=== PATIENT | male | born 1960 | race Caucasian/White ===

== ENCOUNTER → 2017-10-19 08:39 | Outpatient (CLI) | payer OTHER, SELFPAY ==
--- NOTE | 2017-10-19 08:43 | CDU_ITS ---
Reason For Study: STENOSIS Rt. Velocities/BP Lt. Velocities/BP Prox CCA 55.7/14.1 cm/sec. Prox CCA 79.7/28.1 cm/sec. Mid CCA 49.2/11.7 cm/sec. Mid CCA 62.1/21.7 cm/sec. Dist CCA 53.4/16.4 cm/sec. Dist CCA 66.3/20.5 cm/sec. Prox ICA 62.1/24 cm/sec. Prox ICA 83.6/24.8 cm/sec. Mid ICA 78/32.8 cm/sec. Mid ICA 74.5/28.7 cm/sec. Dist ICA 106/39.3 cm/sec. Dist ICA 123/35.4 cm/sec. Rt. ICA/CCA = 1.99. Lt. ICA/CCA = 1.86. Prox ECA 138/22.6 cm/sec. Prox ECA 125/24.6 cm/sec. Rt. Vert. 57.8/17.3 cm/sec. Lt. Vert. 50.7/13.8 cm/sec. Right Extracranial There is heterogeneous, irregular atherosclerotic plaque noted in the right common carotid artery. There is heterogeneous, irregular atherosclerotic plaque noted in the right internal carotid artery. There is heterogeneous, irregular atherosclerotic plaque noted in the right external carotid artery. Antegrade flow is noted in the right vertebral artery. Left Extracranial There is heterogeneous, irregular atherosclerotic plaque noted in the left common carotid artery. There is heterogeneous, irregular atherosclerotic plaque noted in the left internal carotid artery. There is heterogeneous, irregular atherosclerotic plaque noted in the left external carotid artery. Antegrade flow is noted in the left vertebral artery. Procedure Carotid Duplex [id number]. Exam performed in department. Interpretation Summary Mild (<50%) stenosis right extracranial internal carotid. Mild (<50%) stenosis left extracranial internal carotid. Flow within the vertebral arteries is antegrade bilaterally. Ordering Physician: Antolin Padilla Referring Physician: Antolin Padilla Performed By: Mary Killian RVT and Student
--- NOTE | 2017-10-19 08:44 | AAVD_ITS ---
Reason For Study: STENOSIS Aorta Measurements Aorta Doppler Measurements Proximal aorta measures1.83 x 1.79cm. in cross- Peak systolic flow velocities within the proximal sectional axis. aorta measure 67.5/18.2 cm/sec. Proximal aorta measures1.78cm. in longitudinal Peak systolic flow velocities within the mid axis. aorta measure 54.7 cm/sec. Mid aorta measures1.49 x 1.41cm. in cross- Peak systolic flow velocities within the distal sectional axis. aorta measure 63.8 cm/sec. Mid aorta measures1.42cm. in longitudinal axis. Distal aorta measures1.53 x 1.45cm. in cross- sectional axis. Distal aorta measures1.53cm. in longitudinal axis. Left Iliac Artery Left iliac artery measures 0.63 cm. in the longitudinal axis. Left iliac artery measures 0.67 x 0.67 cm. in the cross-sectional axis. Peak systolic velocity in the left iliac artery measures 255 cm/sec. Right Iliac Artery Right iliac artery measures 0.56 cm. in the longitudinal axis. Right iliac artery measures 0.62 x 0.72 cm. in the cross-sectional axis. Peak systolic velocity in the right iliac artery measures 257 cm/sec. Procedure Aorta IVC Iliac vasculature or bypass grafts [id number]. Exam performed in department. Interpretation Summary 1. No aortic aneurysm. 2. Bilateral AVRIL stenosis. Ordering Physician: Antolin Padilla Referring Physician: Antolin Padilla Performed By: Mary Killian RVT and Student
--- NOTE | 2017-10-25 11:39 | LEAS ---
Arterial Study - Arterial Study Arterial Study: Date of scan 10/19/[address] Padilla History: Patient with follow-up from his claudication symptoms. Interpretation: Right lower extremity with and duplex triphasic flow noted at the ankle with an NANCIE 0.99 at the PT and 1.0 to the DP. Next Left lower extremity with more of a monophasic waveform noted at the ankle of the DP with an NANCIE 0.63 in the PT with an NANCIE 0.53. Impression: 1. Right lower extremity with no evidence of significant arterial occlusive disease at rest with an NANCIE 1.02. 2. Left lower extremity with moderate arterial occlusive disease and NANCIE 0.63.
== END ==
PROVIDERS: Family Provider Family Medicine; PCP Family Medicine; Visit Provider Surgery Vascular Surgery
DX: I65.23 Occlusion and stenosis of bilateral carotid arteries (principal); M79.604 Pain in right leg; I74.09 Other arterial embolism and thrombosis of abdominal aorta; I70.213 Atherosclerosis of native arteries of extremities with intermittent claudication, bilateral legs; I10 Essential (primary) hypertension; F17.200 Nicotine dependence, unspecified, uncomplicated
CPT/HCPCS: 93880; 93922; 93978

== ENCOUNTER → 2018-10-23 12:30 | Outpatient (CLI) | payer OTHER, SELFPAY ==
[2018-10-23 12:04] VITALS: BMI 28.0
--- NOTE | 2018-10-23 12:32 | CT_ITS ---
STUDY: LOW DOSE CT LUNG CANCER SCREENING REASON FOR EXAM: Male, 58 years old. Smoking history of 1.5 pack per day for 45 years. RADIATION DOSAGE (If Supplied By Facility): CTDIvol = ( 4.02 ) mGy, DLP = ( 164.56 ) mGycm TECHNIQUE: No contrast was administered. Low dose technique was utilized (average mAS-38 and kVp 120). 1.25 mm axial source images with a slice interval of 1.25-mm were reconstructed in lung windows. 2.5 mm axial source images with a slice interval of 2.5-mm were reconstructed in lung windows. 5.0 mm axial source images with a slice interval of 5.0-mm were reconstructed in soft tissue windows. Nodule measured using lung windows on PACS and/or independent workstation with automated measurement of minimum and maximum diameter. Nodule measurement reported as average diameter rounded to the nearest whole number. Growth is defined as an increase ins size of greater than 1.5 mm. COMPARISON: None. NODULES: There is a 3.9 cm x 2.3 cm x 2.6 cm infiltrative density in the posterior aspect of the lingular segment of the left upper lobe abutting the left major fissure. This most likely presents an area of scarring. Correlation with a PET scan is recommended for further evaluation. Emphysema: Mild degree of emphysematous changes more prominent in the upper lobes. Hyperinflation. Endobronchial lesion: Aorta: Atherosclerotic calcification. Coronary arteries: Coronary artery calcification. Mediastinal nodes: Small benign-appearing mediastinal lymph nodes. Other chest and abdominal findings: Multilevel degenerative changes of the thoracic spine. CT/Low Dose CT Lung Screening IMPRESSION: Lung-RADS category 4A - Screening at 3 months with LDCT or evaluation with PET/CT may be used. IMPORTANT NOTES FOR USE: ACR Lung-RADS Version 1.0 Assessment Categories Release Date: June 03, 2013 Category: Coded 0-4 bases on nodule(s) with highest degree of suspicion. Negative screen is defined as categories 1 and 2; a positive screen is defined as categories 3 and 4. Category 3 and 4A nodules that are unchanged on interval CT should be coded as category 2, and individuals returned to screening in 12 months. Category 4X: Category 3 or 4 nodules with additional imaging findings that increase the suspicion of lung cancer, such as spiculation, GGN that doubles in size in 1 year, enlarged lymph notes, etc. Category Modifiers: S (significant finding unrelated to lung cancer) and C (prior history of treated lung cancer) may be added to the 0-4 Lung-RADS Electronically Signed: Bhaskar Bernal, at 13:01 EDT , Service support ,
== END ==
PROVIDERS: Family Provider Family Medicine; PCP Family Medicine; Referring Provider Nurse Practitioner Family; Visit Provider Nurse Practitioner Family
DX: F17.210 Nicotine dependence, cigarettes, uncomplicated (principal); Z12.2 Encounter for screening for malignant neoplasm of respiratory organs
CPT/HCPCS: G0297

== ENCOUNTER → 2018-10-26 10:40 | Outpatient (CLI) | payer OTHER, SELFPAY ==
[2018-10-25 08:18] VITALS: BMI 27.8
--- NOTE | 2018-10-26 15:39 | PFTCOMP ---
COMPLETE PULMONARY FUNCTION TEST INTERPRETATION Brief HPI: Patient is a 58 year old male, currently under the care of Dr. Arambula, who presents to [facility] for complete pulmonary function tests secondary to diagnosis of nicotine dependence. Respiratory therapist reports good effort and reproducible results. Interpretation: Forced expiration spirometry shows a moderate large airways obstructive ventilatory defect with an FEV1 of 74% predicted. There is a significant bronchodilator response in FEV1 by strict ATS criteria. Spirograms are of good quality and plateau slowly, indicating slowly emptying areas of the lungs. The respiratory flow volume loop shows decreased expiratory flow rates at high lung volumes consistent with small airways obstruction. Lung volumes by body plethysmography show a normal total lung capacity at 7.7 L, 112% predicted. All other lung volumes are within normal limits. Diffusion capacity by carbon monoxide is normal at 102% predicted. The airway resistance is elevated. No previous pulmonary function tests were available for review. Impression: Partially reversible moderate large airways obstructive ventilatory defect and a pattern consistent with chronic bronchitis/asthma
== END ==
PROVIDERS: Family Provider Family Medicine; PCP Family Medicine; Referring Provider Internal Medicine Critical Care Medicine; Visit Provider Internal Medicine Critical Care Medicine
DX: F17.210 Nicotine dependence, cigarettes, uncomplicated (principal)
CPT/HCPCS: 94060; 94726; 94729

== ENCOUNTER → 2018-10-29 07:20 | Outpatient (CLI) | payer OTHER, SELFPAY ==
[2018-10-25 08:18] VITALS: BMI 27.8
--- NOTE | 2018-10-29 08:00 | PET_ITS ---
EXAMINATION: FDG PET CT INDICATIONS: A 58-year-old male with reported history of pulmonary nodularity. COMPARISON EXAMINATION: CT of the chest dated 10/23/18. TECHNIQUE: Following the intravenous administration of 16.38 mCi of F-18 deoxyglucose via the left antecubital fossa, multiplanar image acquisitions of the neck, chest, abdomen and pelvis to level of mid thigh, obtained at one hour post radiopharmaceutical administration contemporaneously interpreted with the current CT of the neck, chest, abdomen and pelvis to level of mid thigh, dated 10/29/[address] of the chest dated 10/23/18 reveal: SERUM GLUCOSE LEVEL: 114 mg/dl. HEIGHT: 71 inches. WEIGHT: 200 lbs. FINDINGS: 1. There is no quantitative scintigraphic evidence of abnormal increased glucose metabolism within the context of the left hemithorax pulmonary parenchyma to include a subtle ground-glass density noted in the left upper posteromedial lung field, left upper lobe. 2. Normal physiologic distribution of the radiopharmaceutical is apparent in the hepatic and splenic parenchyma, both renal units, bladder and visualized intestinal tract. There is uniform distribution of the radiopharmaceutical concentration defined in the visualized cerebellar hemispheres and cerebral cortical structures.? Diffuse intestinal tract activity is noted throughout all four quadrants of the abdominal-pelvic retroperitoneum, mesentery consistent with normal physiologic distribution of the radiopharmaceutical. Pertinent CT findings are as follows. CHEST: The parenchymal density noted in the left lower anterolateral lung field, lingula demonstrated on CT of the chest dated 10/23/18 is not apparent on the current CT component of the FDG PET CT study dated 10/29/18. Coronary arterial calcification is observed. Atherosclerotic calcification is noted in the thoracic aorta. The maximal axial diameter of the ascending thoracic aorta is 42.6 mm. Scattered bilateral axillary and mediastinal soft tissue is ametabolic. ABDOMEN AND PELVIS: Atherosclerotic calcification is defined in the abdominal aorta without evidence of dilatation, aneurysm formation. Abdominal-pelvic arterial calcification is observed. Bilateral fat-containing inguinal hernias are noted. Right-left inguinal soft tissue densities with fatty hilus formation are non-glucose avid. SKELETAL: Degenerative changes defined in the cervical, thoracic and lumbar spine demonstrate no evidence for glucose hypermetabolism. PET/PET/CT Tumor Base -Thigh Init IMPRESSION: 1. NEGATIVE EXAMINATION. There is no quantitative scintigraphic evidence of abnormal increased glucose metabolism within the context of the left mid posteromedial lung field, left upper lobe corresponding to ground-glass density defined on CT of the chest dated 10/29/18. 2. Anatomic stability may be ensured in the left mid posteromedial hemithorax pulmonary parenchyma with repeat CT of the thorax in three months. (Sathish, Seminars in Thoracic and Cardiovascular Surgery 14:292, 2002). 3. Meticulous inspection of the left lower anterolateral lung field, lingula demonstrates complete resolution of the previously described-visualized anatomic abnormality noted on diagnostic CT of the chest dated 10/23/18. Electronic Signature Jacques Kim D.O. Electronically Signed: Jacques Kim DO at 22:36 EDT Tel , Service support ,
== END ==
PROVIDERS: Family Provider Family Medicine; PCP Family Medicine; Referring Provider Internal Medicine Critical Care Medicine; Visit Provider Internal Medicine Critical Care Medicine
DX: R91.8 Other nonspecific abnormal finding of lung field (principal)
CPT/HCPCS: 78815; A9552

== ENCOUNTER → 2018-11-26 15:14 | Outpatient (CLI) | payer OTHER, SELFPAY ==
[2018-11-01 10:03] VITALS: BMI 28.3
== END ==
PROVIDERS: Family Provider Family Medicine; PCP Family Medicine; Referring Provider Internal Medicine Critical Care Medicine; Visit Provider Internal Medicine Critical Care Medicine
DX: G47.30 Sleep apnea, unspecified (principal)
CPT/HCPCS: 94762

== ENCOUNTER → 2019-04-15 08:47 | Outpatient (CLI) | payer OTHER, SELFPAY ==
[2018-12-19 15:19] VITALS: BMI 28.3
--- NOTE | 2019-04-15 08:51 | CDU_ITS ---
Reason For Study: stenosis Rt. Velocities/BP Lt. Velocities/BP Prox CCA 63.6/13.1 cm/sec. Prox CCA 92.8/27.7 cm/sec. Mid CCA 72.4/12.0 cm/sec. Mid CCA 86.7/29.0 cm/sec. Dist CCA 52.6/13.1 cm/sec. Dist CCA 79.3/20.4 cm/sec. Prox ICA 67.4/25.7 cm/sec. Prox ICA 103.4/34.0 cm/sec. Mid ICA 78.1/36.4 cm/sec. Mid ICA 94.2/34.0 cm/sec. Dist ICA 94.1/30.2 cm/sec. Dist ICA 118.0/48.6 cm/sec. Rt. ICA/CCA = 94.1/72.4=1.3. Lt. ICA/CCA = 118.0/92.8=1.3. Prox ECA 183.5/25.5 cm/sec. Prox ECA 201.0/21.1 cm/sec. Rt. Vert. 49.9/13.0 cm/sec. Lt. Vert. 57.0/18.6 cm/sec. Right Extracranial There is heterogeneous, irregular atherosclerotic plaque noted in the right common carotid artery. There is heterogeneous, irregular atherosclerotic plaque noted in the right internal carotid artery. There is heterogeneous, irregular atherosclerotic plaque noted in the right external carotid artery. Antegrade flow is noted in the right vertebral artery. There is heterogeneous, irregular atherosclerotic plaque noted in the right bulb. Left Extracranial There is heterogeneous, irregular atherosclerotic plaque noted in the left common carotid artery. There is heterogeneous, smooth atherosclerotic plaque noted in the left internal carotid artery. There is heterogeneous, irregular atherosclerotic plaque noted in the left external carotid artery. Antegrade flow is noted in the left vertebral artery. There is heterogeneous, irregular atherosclerotic plaque noted in the left bulb. Procedure Carotid Duplex [id number]. Exam performed in department. Interpretation Summary Mild (<50%) stenosis right extracranial internal carotid. Mild (<50%) stenosis left extracranial internal carotid. Flow within the vertebral arteries is antegrade bilaterally. Ordering Physician: Antolin Padilla Referring Physician: Antolin Tyson Performed By: Nohelia Black, CHRISTIN, RVT
--- NOTE | 2019-04-15 08:52 | AAVD_ITS ---
Reason For Study: aortoilliac disease, atherosclerosis Aorta Measurements Aorta Doppler Measurements Proximal aorta measures1.79 x 1.81cm. in cross- Peak systolic flow velocities within the proximal sectional axis. aorta measure 31.1 cm/sec. Proximal aorta measures1.84cm. in longitudinal Peak systolic flow velocities within the mid aorta axis. measure 50.4 cm/sec. Mid aorta measures1.68 x 1.68cm. in cross- Peak systolic flow velocities within the distal sectional axis. aorta measure 66.2 cm/sec. Mid aorta measures1.66cm. in longitudinal axis. Distal aorta measures1.81 x 1.79cm. in cross- sectional axis. Distal aorta measures1.85cm. in longitudinal axis. Interpretation Summary 1. No aortic aneurysm or stenosis. Ordering Physician: Antolin Padilla Referring Physician: Antolin Padilla Performed By: Nohelia Black, CHRISTIN, RVT
== END ==
PROVIDERS: PCP Family Medicine; Referring Provider Surgery Vascular Surgery; Visit Provider Surgery Vascular Surgery
DX: I65.23 Occlusion and stenosis of bilateral carotid arteries (principal); I74.09 Other arterial embolism and thrombosis of abdominal aorta; I70.213 Atherosclerosis of native arteries of extremities with intermittent claudication, bilateral legs; F17.200 Nicotine dependence, unspecified, uncomplicated
CPT/HCPCS: 93880; 93922; 93978

== ENCOUNTER → 2020-07-03 07:48 | Outpatient (CLI) | payer OTHER, SELFPAY ==
[2018-12-19 15:19] VITALS: BMI 28.3
--- NOTE | 2020-07-03 07:51 | ART_ITS ---
Reason For Study: Atherosclerosis Procedure A bilateral lower extremity continuous wave Doppler with analog waveform analysis and ankle brachial indexes. Left Segmental Pressures Left brachial= 199mmHg. Left posterior tibial artery = 76mmHg. Left dorsalis pedis artery = 87mmHg. Left digit = 68 mmHg. The left dorsalis pedis waveforms are monophasic. The left posterior tibial artery waveforms are monophasic. Right Segmental Pressures Right brachial= 192mmHg. Right posterior tibial artery = 181mmHg. Right dorsalis pedis artery = 192mmHg. Right digit = 117 mmHg. The right dorsalis pedis waveforms are triphasic. The right posterior tibial artery waveforms are triphasic. Indices The right ankle brachial index by the dorsalis pedis is 0.96. The right ankle brachial index by the posterior tibial artery is 0.91. The right digital-brachial index is 0.59. The left ankle brachial index by the dorsalis pedis is 0.44. The left ankle brachial index by the posterior tibial artery is 0.38. The left digital-brachial index is 0.34. VL/Ankle Brachial Index Interpretation Summary Right with no evidence of occlusive disease at rest with triphasic flow and an NANCIE 0.96 with a DBI of 0.59. Left leg with moderate to severe occlusive disease with an NANCIE 0.44 an d a DBI 0.34. Ordering Physician: Antolin Padilla Referring Physician: Antolin Tyson Performed By: Ilda Nava RVT
--- NOTE | 2020-07-03 07:51 | AAVD_ITS ---
Reason For Study: Aortoiliac occlusive disease Aorta Measurements Aorta Doppler Measurements Proximal aorta measures2.12 x 2.14cm. in cross- Peak systolic flow velocities within the proximal sectional axis. aorta measure 53.5 cm/sec. Proximal aorta measures2.12cm. in longitudinal Peak systolic flow velocities within the mid aorta axis. measure 47.8 cm/sec. Mid aorta measures1.88 x 1.85cm. in cross- Peak systolic flow velocities within the distal sectional axis. aorta measure 57.3 cm/sec. Mid aorta measures1.83cm. in longitudinal axis. Distal aorta measures1.74 x 1.72cm. in cross- sectional axis. Distal aorta measures1.71cm. in longitudinal axis. Left Iliac Artery Left iliac artery measures 0.78 x 0.78 cm. in the cross-sectional axis. Left iliac artery measures 0.72 cm. in the longitudinal axis. Peak systolic velocity in the left iliac artery measures 117.7 cm/sec. Right Iliac Artery Right iliac artery measures 0.68 x 0.68 cm. in the cross-sectional axis. Right iliac artery measures 0.73 cm. in the longitudinal axis. Peak systolic velocity in the right iliac artery measures 249.6 cm/sec. Procedure Aorta IVC Iliac vasculature or bypass grafts [id number]. Exam performed in department. VL/Abd Aortic/IVC Duplex scan Interpretation Summary No aortoiliac aneurysm or stenosis except moderate rih AVRIL. Ordering Physician: Antolin Padilla Referring Physician: Antolin Tyson Performed By: Ilda Nava RVT
--- NOTE | 2020-07-03 07:51 | CDU_ITS ---
Reason For Study: Bilateral carotid artery stenosis Rt. Velocities/BP Lt. Velocities/BP Prox CCA 56.4/11.3 cm/sec. Prox CCA 76.8/14.5 cm/sec. Mid CCA 46.6/9.7 cm/sec. Mid CCA 66.4/14.5 cm/sec. Dist CCA 46.6/9.7 cm/sec. Dist CCA 55.1/13.5 cm/sec. Prox ICA 44.7/7.2 cm/sec. Prox ICA 63/15.1 cm/sec. Mid ICA 57/14.2 cm/sec. Mid ICA 82.7/22.5 cm/sec. Dist ICA 72.7/23.8 cm/sec. Dist ICA 110.9/34.8 cm/sec. Rt. ICA/CCA = 1.56. Lt. ICA/CCA = 1.67. Prox ECA 146.7/18.8 cm/sec. Prox ECA 150.3/18.8 cm/sec. Rt. Vert. 43.9/9 cm/sec. Lt. Vert. 47.7/10.2 cm/sec. Right Extracranial There is heterogeneous, irregular atherosclerotic plaque noted in the right common carotid artery. There is heterogeneous, irregular atherosclerotic plaque noted in the right internal carotid artery. There is heterogeneous, irregular atherosclerotic plaque noted in the right external carotid artery. Antegrade flow is noted in the right vertebral artery. Left Extracranial There is heterogeneous, irregular atherosclerotic plaque noted in the left common carotid artery. There is heterogeneous, irregular atherosclerotic plaque noted in the left internal carotid artery. There is heterogeneous, irregular atherosclerotic plaque noted in the left external carotid artery. Antegrade flow is noted in the left vertebral artery. Procedure Carotid Duplex [id number]. This is a Carotid Duplex examination using B-mode, color flow and specral Doppler. Exam performed in department. VL/Carotid Duplex Ultrasound Interpretation Summary Mild (<50%) stenosis right extracranial internal carotid. Mild (<50%) stenosis left extracranial internal carotid. Flow within the vertebral arteries is antegrade bilaterally. Ordering Physician: Antolin Padilla Referring Physician: Antolin Tyson Performed By: Ilda Nava RVT
== END ==
PROVIDERS: PCP Family Medicine; Referring Provider Surgery Vascular Surgery; Visit Provider Surgery Vascular Surgery
DX: I65.23 Occlusion and stenosis of bilateral carotid arteries (principal); I74.09 Other arterial embolism and thrombosis of abdominal aorta; I70.213 Atherosclerosis of native arteries of extremities with intermittent claudication, bilateral legs; F17.200 Nicotine dependence, unspecified, uncomplicated
CPT/HCPCS: 93880; 93922; 93978

== ENCOUNTER → 2021-09-06 | Outpatient (CLI) | payer OTHER, SELFPAY ==
--- NOTE | 2021-09-06 08:59 | ART_ITS ---
Reason For Study: Atherosclerosis Procedure A bilateral lower extremity continuous wave Doppler with analog waveform analysis and ankle brachial indexes. Left Segmental Pressures Left brachial= 189mmHg. Left posterior tibial artery = 75mmHg. Left dorsalis pedis artery = 78mmHg. Left digit = 44 mmHg. The left dorsalis pedis waveforms are monophasic. The left posterior tibial artery waveforms are monophasic. Right Segmental Pressures Right brachial= 182mmHg. Right posterior tibial artery = 164mmHg. Right dorsalis pedis artery = 179mmHg. Right digit = 113 mmHg. The right dorsalis pedis waveforms are triphasic. The right posterior tibial artery waveforms are triphasic. Indices The right ankle brachial index by the dorsalis pedis is 0.95. The right ankle brachial index by the posterior tibial artery is 0.87. The right digital-brachial index is 0.60. The left ankle brachial index by the dorsalis pedis is 0.41. The left ankle brachial index by the posterior tibial artery is 0.40. The left digital-brachial index is 0.23. VL/Ankle Brachial Index Interpretation Summary Right lower extremity with no evidence of significant occlusive disease at rest with triphasic flow and an NANCIE 0.95. Left lower extremity with moderate to severe occlusive disease at rest with monophasic flow and an NANCIE 0.41. Digit brachial index of 0.6 on the right and 0 .23 on the left. Ordering Physician: Antolin Padilla Referring Physician: Antolin Tyson Performed By: Ilda Nava RVT
--- NOTE | 2021-09-06 08:59 | AAVD_ITS ---
Reason For Study: Aortoiliac occlusive disease Aorta Measurements Aorta Doppler Measurements Proximal aorta measures1.75 x 1.78cm. in cross- Peak systolic flow velocities within the proximal sectional axis. aorta measure 53.7 cm/sec. Proximal aorta measures1.79cm. in longitudinal Peak systolic flow velocities within the mid aorta axis. measure 59.2 cm/sec. Mid aorta measures1.55 x 1.54cm. in cross- Peak systolic flow velocities within the distal sectional axis. aorta measure 57 cm/sec. Mid aorta measures1.56cm. in longitudinal axis. Distal aorta measures1.87 x 1.85cm. in cross- sectional axis. Distal aorta measures1.78cm. in longitudinal axis. Left Iliac Artery Left iliac artery measures 0.80 x 0.78 cm. in the cross-sectional axis. Left iliac artery measures 0.80 cm. in the longitudinal axis. Peak systolic velocity in the left iliac artery measures 151.7 cm/sec. Right Iliac Artery Right iliac artery measures 0.61 x 0.63 cm. in the cross-sectional axis. Right iliac artery measures 0.65 cm. in the longitudinal axis. Peak systolic velocity in the right iliac artery measures 116.1 cm/sec. Procedure Aorta IVC Iliac vasculature or bypass grafts [id number]. Right iliac artery was technically difficult to view due to bowel gas. Exam performed in department. VL/Abd Aortic/IVC Duplex scan Interpretation Summary No evidence of aortic iliac aneurysm or stenosis visualized. Ordering Physician: Antolin Padilla Referring Physician: Antolin Tyson Performed By: Ilda Nava RVT
--- NOTE | 2021-09-06 08:59 | CDU_ITS ---
Reason For Study: Bilateral carotid stenosis Rt. Velocities/BP Lt. Velocities/BP Prox CCA 52/9.1 cm/sec. Prox CCA 77.7/11.4 cm/sec. Mid CCA 45.5/8 cm/sec. Mid CCA 71.6/20 cm/sec. Dist CCA 48.7/9.1 cm/sec. Dist CCA 70.4/18.8 cm/sec. Prox ICA 64.2/15.1 cm/sec. Prox ICA 156.1/18.9 cm/sec. Mid ICA 69.1/23.7 cm/sec. Mid ICA 102.3/32.3 cm/sec. Dist ICA 63/17.6 cm/sec. Dist ICA 122.9/40.7 cm/sec. Rt. ICA/CCA = 1.42. Lt. ICA/CCA = 2.18. Prox ECA 171.8/20.4 cm/sec. Prox ECA 166.8/18.8 cm/sec. Rt. Vert. 60.6/11.4 cm/sec. Lt. Vert. 79/20 cm/sec. Right Extracranial There is heterogeneous, irregular atherosclerotic plaque noted in the right common carotid artery. There is heterogeneous, irregular atherosclerotic plaque noted in the right internal carotid artery. There is heterogeneous, irregular atherosclerotic plaque noted in the right external carotid artery. Antegrade flow is noted in the right vertebral artery. Left Extracranial There is heterogeneous, irregular atherosclerotic plaque noted in the left common carotid artery. There is heterogeneous, irregular atherosclerotic plaque noted in the left internal carotid artery. There is heterogeneous, irregular atherosclerotic plaque noted in the left external carotid artery. Antegrade flow is noted in the left vertebral artery. Procedure Carotid Duplex [id number]. This is a Carotid Duplex examination using B-mode, color flow and specral Doppler. Exam performed in department. VL/Carotid Duplex Ultrasound Interpretation Summary Mild (<50%) stenosis right extracranial internal carotid. Moderate (50-69%) rosette nosis left extracranial internal carotid. Flow within the vertebral arteries is antegrade bilaterally. Ordering Physician: Antolin Padilla Referring Physician: Antolin Tyson Performed By: Ilda Nava RVT
== END | disposition home or self-care (01) ==
PROVIDERS: PCP Family Medicine; Referring Provider Surgery Vascular Surgery; Visit Provider Surgery Vascular Surgery
DX: I65.23 Occlusion and stenosis of bilateral carotid arteries (principal); I74.09 Other arterial embolism and thrombosis of abdominal aorta; I70.213 Atherosclerosis of native arteries of extremities with intermittent claudication, bilateral legs; F17.200 Nicotine dependence, unspecified, uncomplicated
CPT/HCPCS: 93880; 93922; 93978

== ENCOUNTER → 2021-10-27 | Outpatient (CLI) | payer OTHER, SELFPAY ==
[2021-10-27 09:30] LABS: Hematocrit 42.4 % (40-54); Hemoglobin 14.8 g/dL (13.0-16.5); Mean Corp Hgb Conc 34.9 g/dL (32-36); Mean Corpuscular Hgb 31.2 pg (27.0-32.0); Mean Corpuscular Volume 89.5 fL (80-94); Mean Platelet Vol. 9.9 fl (6.2-12.0); Platelet Count 255 K/mm3 (150-450); RBC Distribution Width CV 13.1 % (11.6-14.6); Red Blood Count 4.74 M/mm3 (4.6-6.2)
[2021-10-27 10:02] LABS: ALB/GLOB Ratio 1.1 RATIO (0.9-2.4); AST(SGOT) 17 U/L (15-37); Alanine Aminotransfer ALT/SGPT 31 U/L (16-61); Albumin, Serum 3.7 g/dL (3.2-5.0); Alkaline Phosphatase 87 U/L (45-117); Anion Gap 9 (5-15); BUN 10 mg/dL (7-18); BUN/Creat Ratio 15.4 RATIO (10-20); Calcium,Total 8.8 mg/dL (8.5-10.1); Chloride 92 mmol/L (98-107); Cholesterol 159 mg/dL (200); Creatinine, Serum 0.65 mg/dL (0.70-1.30); EST Glomerular Filtration Rate 132 mL/min (>60); Est Glom Filt Rate - Afr Amer 160 mL/min (>60); Globulin 3.5 g/dL (2.2-4.2); Glucose 98 mg/dL (74-106); High Density Lipoprotein 48 mg/dL; Potassium 4.4 mmol/L (3.5-5.1); Protein, Total 7.2 g/dL (6.4-8.2); Sodium Level 127 mmol/L (136-145); Triglycerides 64 mg/dL; Very Low Density Lipoprotein 13 mg/dL (5-40)
[2021-10-29 19:30] LABS: ANTINUCLEAR ANTIBODIES DIRECT Negative (Negative)
== END | disposition home or self-care (01) ==
LOC: LABSPEC 09:00
PROVIDERS: PCP Family Medicine; Visit Provider Family Medicine
DX: E78.00 Pure hypercholesterolemia, unspecified (principal); R23.3 Spontaneous ecchymoses; M25.50 Pain in unspecified joint
CPT/HCPCS: 80053; 80061; 85027; 86038; 86140

== ENCOUNTER → 2022-04-16 | Outpatient (CLI) | payer OTHER, SELFPAY ==
--- NOTE | 2022-04-16 08:44 | CT_ITS ---
STUDY: LOW DOSE CT LUNG CANCER SCREENING REASON FOR EXAM: Male, 61 years old. Tobacco Dependency RADIATION DOSAGE (If Supplied By Facility): CTDIvol = ( 4.02 ) mGy, DLP = ( 144.96 ) mGycm TECHNIQUE: No contrast was administered. Low dose technique was utilized (average mAS-38 and kVp 120). 1.25 mm axial source images with a slice interval of 1.25-mm were reconstructed in lung windows. 2.5 mm axial source images with a slice interval of 2.5-mm were reconstructed in lung windows. 5.0 mm axial source images with a slice interval of 5.0-mm were reconstructed in soft tissue windows. COMPARISON: 10/23/2018 Emphysema: Mild bilateral apical scarring. Mild emphysema. Some atelectasis in the posterior lingula adjacent to the major fissure. No noncalcified nodule or mass. Endobronchial lesion: None Aorta: Some calcified plaque in the aortic arch but no aortic aneurysm. CORONARY ARTERIES: Coronary artery calcification is seen. Heart: Cardiomegaly. Pulmonary artery: Normal Mediastinal nodes: Normal Other chest and abdominal findings: None CT/Low Dose CT Lung Screening IMPRESSION: Lung-RADS category 1 - Continue annual screening with LDCT in 12 months. IMPORTANT NOTES FOR USE: ACR Lung-RADS Version 1.1 Assessment Categories Release Date: 2018 Category: Coded 0-4 bases on nodule(s) with highest degree of suspicion. Negative screen is defined as categories 1 and 2; a positive screen is defined as categories 3 and 4. Category 3 and 4A nodules that are unchanged on interval CT should be coded as category 2, and individuals returned to screening in 12 months. Category 4X: Category 3 or 4 nodules with additional imaging findings that increase the suspicion of lung cancer, such as spiculation, GGN that doubles in size in 1 year, enlarged lymph notes, etc. Category Modifiers: S (significant finding unrelated to lung cancer) Electronically Signed: Jacques Watson MD at 12:01 EST ,
== END | disposition home or self-care (01) ==
LOC: CT 08:42
PROVIDERS: PCP Family Medicine; Visit Provider Internal Medicine Critical Care Medicine
DX: F17.210 Nicotine dependence, cigarettes, uncomplicated (principal)
CPT/HCPCS: 71271

== ENCOUNTER 2022-11-20 16:54 | Inpatient (IN) | payer OTHER, SELFPAY ==
[2022-11-20 15:48] VITALS: BMI 28.0
--- NOTE | 2022-11-20 16:27 | EKG12_ITS ---
Test Reason : SEIZURE DIRECT ADMITT Blood Pressure : / mmHG Vent. Rate : 057 BPM Atrial Rate : 057 BPM P-R Int : 166 ms QRS Dur : 094 ms QT Int : 472 ms P-R-T Axes : -16 070 061 degrees QTc Int : 459 ms Sinus bradycardia Minimal voltage criteria for LVH, may be normal variant ( Sokolow-Vickers ) Borderline ECG When compared with ECG of 30-DEC-2011 12:19, No significant change was found PEAKED T WAVES Confirmed by GODWIN ORTEGA, TAMMY ([id number]), editor producer SILVA NAVARRO ([id number]) on 11/24/2022 1:35:45 PM Referred By: Confirmed By:TAMMY CONNELLY MD
--- NOTE | 2022-11-20 16:54 | HP.PCM.HOS_ITS ---
HPI - General General Date of Admission: 11/20/22 HPI Narrative GLENYS SOTOMAYOR, is a 62 M who presents to an outside hospital by EMS after seizure. He is remember much of the event however he was upstairs in the bathroom and his heard a thud and she found him on the floor shaking. Once he started to come to he was very lethargic and out of it and groggy. Does not appear to have lost any bowel or bladder function. Initial lab work at the outside hospital was positive for hyponatremia however renal function and white count seem to be okay. Troponin initially was 11.6. He denies any chest pain or lightheadedness but he does state that he drinks 6-8 beers every night and that he has been thinking about quitting, and his last drinks were last evening. He does also endorse smoking marijuana but denies any other drug use. At the outside hospital, CT head was negative for any bleed. [facility] Medical History (Updated 11/20/22 @ 16:[address] Kg Hernandez MD) Hypertension Home Medications lisinopril 20 mg-hydrochlorothiazide 12.5 mg tablet 1 tab PO DAILY bp 03/06/14 [History Last Taken 11/20/22] metoprolol succinate 100 mg tablet,extended release 24 hr 100 mg PO DAILY bp 03/06/14 [History Last Taken 11/20/22] albuterol sulfate 90 mcg/actuation aerosol inhaler 2 puff inhalation Q4H PRN shortness of breath or wheezing #1 device 09/23/20 [Rx Last Taken Unknown] aspirin 81 mg tablet,delayed release 81 mg PO QODAY health maintenance 09/23/20 [History Last Taken 11/20/22] Allergy/AdvReac Type Severity Reaction Status Date / Time No Known Allergies Allergy Verified 07/12/22 14:14 Family History Father Cancer Lung cancer Mother Cancer Lung cancer Brother CVA (cerebral vascular accident) Surgical History History of hernia repair History of intravascular stent placement History of shoulder surgery Total knee replacement status Social History Smoking Status: Current every day smoker tobacco type: cigarettes Tobacco: How many years used: 42 Electronic Cigarette Use: not used second hand exposure: Yes quit status: not considering quitting counseling given: provider counseling substance use type: marijuana ROS Constitutional Constitutional: Denies chills, fatigue, fever(s) or malaise Eyes Eyes: Denies blurry vision ENT HEENT: Denies headache(s) or nasal discharge Cardiovascular Cardiovascular: Denies chest pain, dyspnea on exertion or syncope Respiratory/Chest Respiratory/Chest: Denies cough, shortness of breath at rest or shortness of breath with exertion Gastrointestinal Gastrointestinal: Denies constipation, diarrhea, nausea or vomiting Genitourinary Genitourinary: Denies dysuria Neurologic Neurologic: Reports seizures; Denies focal weakness, numbness or tremor(s) Psychiatric Psychiatric: Denies anxiety or depression Vital Signs Vital Signs Vital Signs: 11/20/22 16:06 Respiratory Effort Normal Non-Labored Respiratory Depth Normal Respiratory Pattern Normal Oxygen Delivery Method Room Air Weight Weight: 200 lb 13.458 oz Body Mass Index (BMI) 28.0 Physical Exam Narrative General: Alert, Oriented x3, Cooperative, No apparent distress HEENT: Atraumatic, PERRLA, EOMI, Normocephalic Oral: Moist Mucosa Neck: Supple, No JVD Lungs: Clear to auscultation, Normal air movement, No rhonchi, No wheeze, No rales Cardiovascular: Regular rate, Regular Rhythm, Normal S1, Normal S2, No murmurs Abdomen: Soft, Non Tender, Non-Distended, No Hepato-splenomegaly Extremities: No edema, Capillary Refill Less than 3 Seconds Skin: No rashes, No breakdown Musculoskeletal: No Tenderness to Palpation of Joints or Extremities Neurological: Cranial nerves II-XII grossly intact, Motor Exam 5/5 strength throughout, Sensory exam intact to light touch and pain Psych/Mental Status: Normal Affect, Appropriate Assessment & Plan Assessment/Plan (1) Seizure: PLAN: Plan 1. Seizure in the setting of alcohol abuse and hyponatremia/alcohol abuse ? The hyponatremia can be multifactorial from the alcohol and the hydrochlorothiazide for blood pressure ? We will continue with the alcohol detox protocol and have him follow-up with 180 to evaluate outpatient options ? The phenobarbital taper in the alcohol detox protocol should be enough to cover him for seizures ? We will obtain an EEG and an MRI tomorrow 2. HTN/HLD/peripheral vascular disease ? He does have stents in his legs ? Discussed tobacco cessation ? We will continue with his blood pressure medication but discontinue his hydrochlorothiazide ? We will obtain a lipid panel and if necessary start him on a statin 3. COPD/tobacco abuse ? We will continue with his albuterol as needed ? Discussed tobacco cessation DVT: Ambulation 76 minutes was spent on direct patient care, including documentation as well as chart review and collaboration with colleagues Charges/Coding Visit Charges Inpatient E&M: 13039 Init Hosp L3
[2022-11-20 17:00] VITALS: BP 202/84; PULSE 62; RESP 18; TEMP 36.5; O2SAT 94
[2022-11-20] MEDS: Phenobarbital 32.4 MG Tablet 64.8 MG PO ×2 (17:54→21:01)
[2022-11-20 18:45] VITALS: BP 155/65; PULSE 63; RESP 18; TEMP 36.6; O2SAT 95
[2022-11-20 20:59] VITALS: BP 166/71; PULSE 56; RESP 18; TEMP 37.1; O2SAT 100
[2022-11-21] VITALS (8 sets, daily range): BP systolic 154–177; BP diastolic 69–100; PULSE 54–57; RESP 18; TEMP 36.6–37.1; O2SAT 92–99
[2022-11-21] MEDS: Phenobarbital 32.4 MG Tablet 64.8 MG PO ×6 (01:55→22:43)
[2022-11-21 06:49] LABS: Absolute Lymphocyte Count 1.62 X10^3/uL (0.83-4.51); Absolute Neutrophil Count 5.8 X10^3/uL (2.0-7.7); Basophil# 0.05 X10^3/uL; Basophil% 0.6 % (0-1); Eosinophil# 0.16 X10^3/uL; Eosinophils% 1.8 % (0-5); Hematocrit 38.8 % (40-54); Hemoglobin 13.1 g/dL (13.0-16.5); Lymphocyte # 1.62 X10^3/ul (0.83-4.51); Lymphocyte % 18.7 % (19-41); Mean Corp Hgb Conc 33.8 g/dL (32-36); Mean Corpuscular Hgb 31.1 pg (27.0-32.0); Mean Corpuscular Volume 92.2 fL (80-94); Mean Platelet Vol. 9.4 fl (6.2-12.0); Monocyte# 0.97 X10^3/uL; Monocyte% 11.2 % (0-10); NRBC Flagged by Analyzer 0 % (0-5); Neutrophil # 5.81 X10^3/uL (2.7-7.7); Platelet Count 234 K/mm3 (150-450); RBC Distribution Width CV 13.3 % (11.6-14.6); RBC Distribution Width SD 45.1 fl (35.1-43.9); Red Blood Count 4.21 M/mm3 (4.6-6.2); White Blood Count 8.7 K/mm3 (4.4-11.0)
[2022-11-21 07:16] LABS: Anion Gap 6 (5-15); BUN 11 mg/dL (7-18); BUN/Creat Ratio 17.2 RATIO (10-20); Chloride 95 mmol/L (98-107); Cholesterol 132 mg/dL (200); Creatinine, Serum 0.64 mg/dL (0.70-1.30); EST Glomerular Filtration Rate 134 mL/min (>60); Est Glom Filt Rate - Afr Amer 162 mL/min (>60); Estimated Creatinine Clearance 124.19 ml/min; Glucose 100 mg/dL (74-106); High Density Lipoprotein 52 mg/dL; Potassium 3.9 mmol/L (3.5-5.1); Sodium Level 128 mmol/L (136-145); Triglycerides 79 mg/dL; Very Low Density Lipoprotein 16 mg/dL (5-40)
--- NOTE | 2022-11-21 08:25 | PCM.PN.HOSP ---
Reason for Visit Reason for Visit: Diagnoses Unspecified convulsions (11/20/22) Subjective Subjective Patient is a 62-year-old gentleman with multiple comorbidities admitted with seizure. An assessment of possible alcoholic withdrawal seizure made admitted to monitored bed for further management Objective Data Objective Data Vital Signs: Vital Signs Temp Pulse Resp BP Pulse Ox O2 Del Method O2 Flow Rate 97.8 F 57 L 18 166/78 H 99 Room Air 2.5 11/21/22 05:26 11/21/22 05:26 11/21/22 05:26 11/21/22 05:26 11/21/22 05:26 11/21/22 07:50 11/21/22 05:26 Oxygen Flow Rate (L/min) 2.5 Oxygen Delivery Method Room Air Weight: 91.1 kg Body Mass Index (BMI) 28.0 Intake & Output: Intake and Output for Last 24 Hours 11/19/22 11/20/22 11/21/22 23:59 23:59 23:59 Intake Total 240 / 240 Balance 240 / 240 Lab / Micro Data 11/21/22 05:57 11/21/22 05:57 Labs: Laboratory Results - last 24 hr 11/21/22 05:57: WBC 8.7, RBC 4.21 L, Hgb 13.1, Hct 38.8 L, MCV 92.2, MCH 31.1, MCHC 33.8, RDW Std Deviation 45.1 H, RDW Coeff of Chiara 13.3, Plt Count 234, MPV 9.4, Immature Gran % (Auto) 0.700, Neut % (Auto) 67.0, Lymph % (Auto) 18.7 L, [place] % (Auto) 11.2 H, Eos % (Auto) 1.8, Baso % (Auto) 0.6, Absolute Neuts (auto) 5.8, Absolute Lymphs (auto) 1.62, Nucleated RBC % 0, Sodium 128 L, Potassium 3.9, Chloride 95 L, Carbon Dioxide 27.0, Anion Gap 6, BUN 11, Creatinine 0.64 L, Estim Creat Clear Calc 124.19, Est GFR (MDRD) Af Amer 162, Est GFR (MDRD) Non-Af 134, BUN/Creatinine Ratio 17.2, Glucose 100, Calcium 8.0 L, Triglycerides 79, Cholesterol 132, LDL Cholesterol 64, VLDL Cholesterol 16, HDL Cholesterol 52 Physical Exam Narrative GENERAL: cooperative HEENT: Atraumatic; normocephalic EYES; Anicteric, Normal Conjunctiva NECK; supple, normal thyroid, RESPIRATORY: Diminished to auscultation CARDIOVASCULAR: Regular S1 S2, GI: soft, normoactive bowel sounds, : No Renal angle tenderness; EXTREMITIES: No edema, no clubbing, MUSCULOSKELETAL: no muscle wasting NEURO: Awake; no lateralizing signs. SKIN: No Rash PSYCH; Flat affect Assessment & Plan Assessment/Plan (1) Seizure: PLAN: Plan Patient is a 62-year-old gentleman with multiple comorbidities admitted with seizure. An assessment of possible alcoholic withdrawal seizure made admitted to monitored bed for further management 1. Seizure ? Suspected to be secondary to alcohol withdrawal seizure. Patient has however been admitted to monitored bed. As part of his evaluation MRI with contrast as well as EEG ordered. EEG did not show any epileptiform discharges. 3. Chronic alcohol use with withdrawal ? Patient placed on phenobarb taper 3. Peripheral arterial disease ? With previous intervention in the lower extremities with stents 4. Hypertension - Blood pressure controlled, home medications continued with dose adjustment as needed 5. Tobacco dependence - Counseled on cessation, offered nicotine patch for tobacco cravings 6. Abnormal CT of the chest ? Patient underwent work-up as outpatient including PET scan which was unremarkable 7. COPD ? Aerosol treatment as needed 8. Tobacco dependence - Counseled on cessation, offered nicotine patch for tobacco cravings 7. DVT prophylaxis ? SC Lovenox Time spent in the patient's overall evaluation,decision-making process, review of diagnostic data, adjustment of management, discussion with other providers, nursing nursing and ancillary staff involved in patient's care documentation, 50 Minutes Charges/Coding Visit Charges Inpatient E&M: 93629 Subs Hosp L3
--- NOTE | 2022-11-21 08:27 | MRI_ITS ---
EXAM: MR HEAD WITHOUT AND WITH INTRAVENOUS CONTRAST CLINICAL INDICATION: seizure WITH ETOH DETOX, FOUND ON BATHROOM FLOOR, SOME CONFUSION TECHNIQUE: Multiplanar and multisequence MR images of the brain were obtained without and with intravenous contrast. CONTRAST: IV 19 cc Clariscan COMPARISON: No relevant prior studies available. FINDINGS: BRAIN AND EXTRA-AXIAL SPACES: Normal. No intra- or extra-axial hemorrhage. No evidence of acute infarct. No intracranial mass or mass effect. There is preservation of the rhoades/white matter interface. Posterior fossa structures are unremarkable. Ventricles are appropriate for age. No hydrocephalus. Basal cisterns are patent. No abnormal contrast enhancement. SELLA: Normal. Normal sella turcica, pituitary gland, infundibular stalk, optic chiasm and hypothalamus. AUDITORY SYSTEM: Normal. The internal auditory canals are patent. BONES/JOINTS: Intact calvarium. SINUSES: Opacified left maxillary sinus. MASTOID AIR CELLS: Unremarkable as visualized. Clear. ORBITS: Unremarkable as visualized. Both globes, extraocular muscles, optic nerves and retrobulbar fat appear unremarkable. VASCULATURE: Unremarkable as visualized. Normal flow voids in the major intracranial circulation. MRI/Brain W/WO Contrast IMPRESSION: 1. No acute intracranial abnormality. 2. Left maxillary sinusitis. Electronically Signed: Vamsi Rodrigues MD at 11:28 EDT ,
[2022-11-21] MEDS: Lisinopril 10 MG Tablet PO (09:10)
[2022-11-21] MEDS: Folic Acid 1 MG Tablet PO (09:10)
[2022-11-21] MEDS: Thiamine Hydrochloride 100 MG Tablet PO (09:10)
[2022-11-21] MEDS: Metoprolol(XL)Succ 100 MG Tablet PO (09:22)
--- NOTE | 2022-11-21 10:34 | CASEMGMT ---
Patient does not have a Healthcare Power of Operations Manager or a Healthcare Living Will. Patient is not interested in documents. Kailee NOGUERA
--- NOTE | 2022-11-21 11:48 | CASEMGMT ---
SW reviewed patient's chart and noted patient was working on cutting back on his alcohol intake. SW met with patient. Introduced self and role at [facility]. SW asked patient if he would like any resources to help him with his alcohol consumption. Patient said he thinks he will be okay. Patient said if he does he knows some people to reach out to. SW told patient if he changes his mind while at [facility] to ask for SW and SW would get him some resources. Kailee NOGUERA
--- NOTE | 2022-11-21 15:53 | CASEMGMT ---
SW Face to Face with patient for initial transition planning/care coordination assessment. SW introduced self and role at [facility]. Patient lying in bed, alert and oriented. Patient willing to participate in assessment and is able to answer all questions appropriately.? Care providers, pharmacy, and demographics verified. Patient wishes to discharge home, denies need for home health at this time.? Patient states he has no further needs or concerns at this time. CM and SW to follow for discharge planning needs that may arise. PCP: Antolin Tyson Specialists: none Preferred Pharmacy: [facility] Insurance: Medical [place] Prescription Benefit:? Yes Living Will/HPOA: No LNOK: Feli Living Arrangements: Patient lives with his in a 1 story home with a couple of entry steps. Transportation: Patient drives DME/HHC: Patient has access to a wheelchair and a walker. Patient does not use any assistive devices. Patient has had home health in the past, but does not remember the agency. Disposition Plan: Patient plans on discharging home with his with no needs. Kailee Murguia [employer]BRASIVE GRADER POORNIMA
[2022-11-22] MEDS: Phenobarbital 32.4 MG Tablet 64.8 MG PO ×3 (01:41→08:43)
--- NOTE | 2022-11-22 03:01 | EKG12_ITS ---
Test Reason : ST ELEVATION Blood Pressure : / mmHG Vent. Rate : 054 BPM Atrial Rate : 054 BPM P-R Int : 170 ms QRS Dur : 084 ms QT Int : 474 ms P-R-T Axes : 033 073 064 degrees QTc Int : 449 ms Sinus bradycardia Otherwise normal ECG When compared with ECG of 20-NOV-2022 16:50, MANUAL COMPARISON REQUIRED, DATA IS UNCONFIRMED PEAKED T WAVES Confirmed by GODWIN ORTEGA, TAMMY ([id number]), rewrite editor SILVA NAVARRO ([id number]) on 11/24/2022 1:29:58 PM Referred By: NIMESH Confirmed By:TAMMY CONNELLY MD
[2022-11-22 04:40] VITALS: BP 155/95; PULSE 62; RESP 18; TEMP 37; O2SAT 94
[2022-11-22 07:04] LABS: Absolute Lymphocyte Count 1.43 X10^3/uL (0.83-4.51); Absolute Neutrophil Count 4.9 X10^3/uL (2.0-7.7); Basophil# 0.06 X10^3/uL; Basophil% 0.8 % (0-1); Eosinophil# 0.19 X10^3/uL; Eosinophils% 2.5 % (0-5); Hematocrit 38.3 % (40-54); Hemoglobin 13.2 g/dL (13.0-16.5); Lymphocyte # 1.43 X10^3/ul (0.83-4.51); Lymphocyte % 18.9 % (19-41); Mean Corp Hgb Conc 34.5 g/dL (32-36); Mean Corpuscular Hgb 31.7 pg (27.0-32.0); Mean Corpuscular Volume 91.8 fL (80-94); Mean Platelet Vol. 8.9 fl (6.2-12.0); Monocyte# 0.91 X10^3/uL; NRBC Flagged by Analyzer 0 % (0-5); Neutrophil # 4.93 X10^3/uL (2.7-7.7); Neutrophil % 65.3 % (47-70); Platelet Count 209 K/mm3 (150-450); RBC Distribution Width CV 13.2 % (11.6-14.6); RBC Distribution Width SD 44.9 fl (35.1-43.9); Red Blood Count 4.17 M/mm3 (4.6-6.2); White Blood Count 7.6 K/mm3 (4.4-11.0)
[2022-11-22 07:45] LABS: Anion Gap 5 (5-15); BUN 10 mg/dL (7-18); BUN/Creat Ratio 16.8 RATIO (10-20); Chloride 96 mmol/L (98-107); EST Glomerular Filtration Rate 145 mL/min (>60); Est Glom Filt Rate - Afr Amer 175 mL/min (>60); Estimated Creatinine Clearance 132.47 ml/min; Glucose 98 mg/dL (74-106); Magnesium 2.3 mg/dL (1.6-2.6); Sodium Level 128 mmol/L (136-145)
[2022-11-22 08:18] VITALS: BP 164/75; PULSE 56; RESP 16; TEMP 36.7; O2SAT 95
[2022-11-22 08:30] VITALS: BP 164/75; PULSE 56; RESP 16; TEMP 36.7; O2SAT 95
[2022-11-22] MEDS: Folic Acid 1 MG Tablet PO (08:39)
[2022-11-22] MEDS: Thiamine Hydrochloride 100 MG Tablet PO (08:39)
--- NOTE | 2022-11-22 08:41 | PCM.PN.HOSP ---
Reason for Visit Reason for Visit: Diagnoses Unspecified convulsions (11/20/22) Subjective Subjective Patient seen requesting to be discharged Objective Data Objective Data Vital Signs: Vital Signs Temp Pulse Resp BP Pulse Ox O2 Del Method O2 Flow Rate 98.0 F 56 L 16 164/75 H 95 Room Air 2.5 11/22/22 08:30 11/22/22 08:30 11/22/22 08:30 11/22/22 08:30 11/22/22 08:30 11/22/22 08:30 11/22/22 04:40 Oxygen Flow Rate (L/min) 2.5 Oxygen Delivery Method Room Air Weight: 91.1 kg Body Mass Index (BMI) 28.0 Intake & Output: Intake and Output for Last 24 Hours 11/20/22 11/21/22 11/22/22 23:59 23:59 23:59 Intake Total 240 / 240 880 / 880 Balance 240 / 240 880 / 880 Lab / Micro Data 11/22/22 06:33 11/22/22 06:33 Labs: Laboratory Results - last 24 hr 11/22/22 06:33: WBC 7.6, RBC 4.17 L, Hgb 13.2, Hct 38.3 L, MCV 91.8, MCH 31.7, MCHC 34.5, RDW Std Deviation 44.9 H, RDW Coeff of Chiara 13.2, Plt Count 209, MPV 8.9, Immature Gran % (Auto) 0.500, Neut % (Auto) 65.3, Lymph % (Auto) 18.9 L, [place] % (Auto) 12.0 H, Eos % (Auto) 2.5, Baso % (Auto) 0.8, Absolute Neuts (auto) 4.9, Absolute Lymphs (auto) 1.43, Nucleated RBC % 0, Sodium 128 L, Potassium 4.0, Chloride 96 L, Carbon Dioxide 27.0, Anion Gap 5, BUN 10, Creatinine 0.60 L, Estim Creat Clear Calc 132.47, Est GFR (MDRD) Af Amer 175, Est GFR (MDRD) Non-Af 145, BUN/Creatinine Ratio 16.8, Glucose 98, Calcium 8.0 L, Phosphorus 3.0, Magnesium 2.3 Radiography Diagnostic Testing: Radiology Impression Brain MRI 11/21/22 08:27 IMPRESSION: 1. No acute intracranial abnormality. 2. Left maxillary sinusitis. Electronically Signed: Vamsi Rodrigues MD at 11:28 EDT , Physical Exam Narrative GENERAL: cooperative HEENT: Atraumatic; normocephalic EYES; Anicteric, Normal Conjunctiva NECK; supple, normal thyroid, RESPIRATORY: Diminished to auscultation CARDIOVASCULAR: Regular S1 S2, GI: soft, normoactive bowel sounds, : No Renal angle tenderness; EXTREMITIES: No edema, no clubbing, MUSCULOSKELETAL: no muscle wasting NEURO: Awake; no lateralizing signs. SKIN: No Rash PSYCH; Flat affect Assessment & Plan Assessment/Plan (1) Seizure: PLAN: Plan Patient is a 62-year-old gentleman with multiple comorbidities admitted with seizure. An assessment of possible alcoholic withdrawal seizure made admitted to monitored bed for further management 1. Seizure ? Suspected to be secondary to alcohol withdrawal seizure. Patient has however been admitted to monitored bed. As part of his evaluation MRI with contrast as well as EEG ordered. EEG did not show any epileptiform discharges. 3. Chronic alcohol use with withdrawal ? Patient placed on phenobarb taper 3. Peripheral arterial disease ? With previous intervention in the lower extremities with stents 4. Hypertension - Blood pressure controlled, home medications continued with dose adjustment as needed 5. Tobacco dependence - Counseled on cessation, offered nicotine patch for tobacco cravings 6. Abnormal CT of the chest ? Patient underwent work-up as outpatient including PET scan which was unremarkable 7. COPD ? Aerosol treatment as needed 8. Tobacco dependence - Counseled on cessation, offered nicotine patch for tobacco cravings 7. DVT prophylaxis ? SC Lovenox 8. Hyponatremia ? Appears to be chronic secondary to beer Potomania; patient placed on sodium tablets Time spent in the patient's overall evaluation,decision-making process, review of diagnostic data, adjustment of management, discussion with other providers, nursing nursing and ancillary staff involved in patient's care documentation, 35 Minutes Charges/Coding Visit Charges Inpatient E&M: 30213 Subs Hosp L2
[2022-11-22] MEDS: Aspirin E.C. 81 MG Tablet PO (08:44)
[2022-11-22] MEDS: Lisinopril 10 MG Tablet PO (08:44)
[2022-11-22 10:47] VITALS: BP 159/72; PULSE 60
[2022-11-22 10:48] VITALS: BP 159/72; PULSE 60
[2022-11-22] MEDS: Metoprolol(XL)Succ 100 MG Tablet PO (10:48)
--- NOTE | 2022-11-22 11:05 | PCM.DC.SUM ---
Providers Date of Admission: 11/20/22 Date of Discharge: 11/22/22 Primary Care Physician: Dr. Antolin Tyson, DO Reason For Visit: SEIZURE WITH ETOH DETOX Diagnosis Discharge Diagnosis (1) Seizure: Status: Acute Code(s): R56.9 - Unspecified convulsions Plan Patient is a 62-year-old gentleman with multiple comorbidities admitted with seizure. An assessment of possible alcoholic withdrawal seizure made admitted to monitored bed for further management 1. Seizure ? Suspected to be secondary to alcohol withdrawal seizure. Patient has however been admitted to monitored bed. As part of his evaluation MRI with contrast as well as EEG ordered. EEG did not show any epileptiform discharges.. Patient requested to be discharged. He was counseled on the need to quit alcohol. He was also instructed not to drive for 6 months 3. Chronic alcohol use with withdrawal ? Patient placed on phenobarb taper 3. Peripheral arterial disease ? With previous intervention in the lower extremities with stents 4. Hypertension - Blood pressure controlled, home medications continued with dose adjustment as needed 5. Tobacco dependence - Counseled on cessation, offered nicotine patch for tobacco cravings 6. Abnormal CT of the chest ? Patient underwent work-up as outpatient including PET scan which was unremarkable 7. COPD ? Aerosol treatment as needed 8. Tobacco dependence - Counseled on cessation, offered nicotine patch for tobacco cravings 7. DVT prophylaxis ? SC Lovenox 8. Hyponatremia ? Appears to be chronic secondary to beer Potomania as well as patient being on HCTZ; patient placed on sodium tablets for 1 month and HCTZ discontinued Time spent in the patient's overall evaluation,decision-making process, review of diagnostic data, adjustment of management, discussion with other providers, nursing nursing and ancillary staff involved in patient's care documentation, 35 Minutes Medications at Discharge Home Medications metoprolol succinate 100 mg tablet,extended release 24 hr 100 mg PO DAILY bp 03/06/14 albuterol sulfate 90 mcg/actuation aerosol inhaler 2 puff inhalation Q4H PRN shortness of breath or wheezing #1 device 09/23/20 aspirin 81 mg tablet,delayed release 81 mg PO QODAY health maintenance 09/23/20 folic acid 1 mg tablet 1 mg PO DAILYCM #30 tabs 11/22/22 lisinopril 10 mg tablet 10 mg PO DAILY #60 tabs 11/22/22 sodium chloride 1,000 mg soluble tablet 1,000 mg PO BID 30 days #60 tabs 11/22/22 thiamine HCl (vitamin B1) 100 mg tablet (Vitamin B-1) 100 mg PO DAILYCM #30 tabs 11/22/22 Hospital Course Summary of Care Provided Minutes Spent on Discharge: 35 Physical Exam Narrative GENERAL: cooperative HEENT: Atraumatic; normocephalic EYES; Anicteric, Normal Conjunctiva NECK; supple, normal thyroid, RESPIRATORY: Diminished to auscultation CARDIOVASCULAR: Regular S1 S2, GI: soft, normoactive bowel sounds, : No Renal angle tenderness; EXTREMITIES: No edema, no clubbing, MUSCULOSKELETAL: no muscle wasting NEURO: Awake; no lateralizing signs. SKIN: No Rash PSYCH; Flat affect Weight / BMI Weight Weight: 91.1 kg Body Mass Index (BMI) 28.0 ABG / Lab / Microbiology Data 11/22/22 06:33 11/22/22 06:33 Laboratory: Laboratory Results - last 24 hr 11/22/22 06:33: WBC 7.6, RBC 4.17 L, Hgb 13.2, Hct 38.3 L, MCV 91.8, MCH 31.7, MCHC 34.5, RDW Std Deviation 44.9 H, RDW Coeff of Chiara 13.2, Plt Count 209, MPV 8.9, Immature Gran % (Auto) 0.500, Neut % (Auto) 65.3, Lymph % (Auto) 18.9 L, [place] % (Auto) 12.0 H, Eos % (Auto) 2.5, Baso % (Auto) 0.8, Absolute Neuts (auto) 4.9, Absolute Lymphs (auto) 1.43, Nucleated RBC % 0, Sodium 128 L, Potassium 4.0, Chloride 96 L, Carbon Dioxide 27.0, Anion Gap 5, BUN 10, Creatinine 0.60 L, Estim Creat Clear Calc 132.47, Est GFR (MDRD) Af Amer 175, Est GFR (MDRD) Non-Af 145, BUN/Creatinine Ratio 16.8, Glucose 98, Calcium 8.0 L, Phosphorus 3.0, Magnesium 2.3 Radiography Diagnostic Testing: Radiology Impression Brain MRI 11/21/22 08:27 IMPRESSION: 1. No acute intracranial abnormality. 2. Left maxillary sinusitis. Electronically Signed: Vamsi Rodrigues MD at 11:28 EDT , D/C Instructions Discharge Diet: No restrictions Discharge Activity: - (Patient was instructed not to drive for 6-month) Call your doctor if you observe: Fever of 101 or Higher, Shortness of breath, Fainting spells and Chest pain Meaningful Use Info Meaningful Use Diagnoses (Choose all that apply): None applicable Discharge Plan Admission Admit Date/Time: 11/20/22 16:54 Attending Provider: Fredi Narayan Primary Care Provider: Antolin Tyson Consulting Providers: Kg Hernandez Discharge Orders/Prescriptions Prescriptions: New thiamine HCl (vitamin B1) [Vitamin B-1] 100 mg Tablet 100 mg PO DAILYCM Qty: 30 0RF sodium chloride 1,000 mg Tablet,Soluble 1,000 mg PO BID 30 Days Qty: 60 0RF lisinopril 10 mg Tablet 10 mg PO DAILY Qty: 60 0RF folic acid 1 mg Tablet 1 mg PO DAILYCM Qty: 30 0RF Continued aspirin 81 mg tablet,delayed release (DR/EC) 81 mg PO QODAY albuterol sulfate 90 mcg/actuation HFA aerosol inhaler 2 puff inhalation Q4H PRN (Reason: shortness of breath or wheezing) Qty: 1 11RF Rx Instructions: administer with spacer metoprolol succinate 100 MG tablet 100 mg PO DAILY Discontinued lisinopril-hydrochlorothiazide 1 TABLET tablet 1 tab PO DAILY Referrals / Follow Up: Antolin Tyson DO [Primary Care Provider] - Within 1 Week Disposition Disposition (needs filled in before D/C Order can be placed): Home, Self Care Charges/Coding Visit Charges Inpatient E&M: 26336 Disch Hosp >30min
[2022-11-22] MEDS: Sodium Chloride 1 GM Tablet PO (11:50)
--- NOTE | 2022-11-22 11:55 | PHA.DC.MC.R ---
Pharmacy [facility] has performed discharge medication reconciliation and counseling for this patient. The patient's discharge medication list was reviewed for discrepancies and discrepancies were resolved. The patient was counseled on the following discharge medications and changes in medications for homegoing were reviewed. The Reason for Use, instructions for use, and potential side effects were reviewed for all new medications. The patient's questions regarding all of their medications were answered. 1. Lisinopril 10 mg PO daily 2. Folic acid 1 mg PO daily 3. Thiamine 100 mg PO daily 4. Sodium chloride 1000 mg PO BID The patient was able to verbally demonstrate an understanding of their discharge medications. Medications at Discharge Home Medications metoprolol succinate 100 mg tablet,extended release 24 hr 100 mg PO DAILY bp 03/06/14 albuterol sulfate 90 mcg/actuation aerosol inhaler 2 puff inhalation Q4H PRN shortness of breath or wheezing #1 device 09/23/20 aspirin 81 mg tablet,delayed release 81 mg PO QODAY health maintenance 09/23/20 folic acid 1 mg tablet 1 mg PO DAILYCM #30 tabs 11/22/22 lisinopril 10 mg tablet 10 mg PO DAILY #60 tabs 11/22/22 sodium chloride 1,000 mg soluble tablet 1,000 mg PO BID 30 days #60 tabs 11/22/22 thiamine HCl (vitamin B1) 100 mg tablet (Vitamin B-1) 100 mg PO DAILYCM #30 tabs 11/22/22
== END 2022-11-22 12:31 | disposition home or self-care (01) | DRG 101 ==
PROVIDERS: Family Medicine; PCP Family Medicine; Visit Provider Internal Medicine
DX: G40.509 Epileptic seizures related to external causes, not intractable, without status epilepticus (principal); F10.931 Alcohol use, unspecified with withdrawal delirium; E87.1 Hypo-osmolality and hyponatremia; J44.9 Chronic obstructive pulmonary disease, unspecified; I73.9 Peripheral vascular disease, unspecified; I10 Essential (primary) hypertension; F12.10 Cannabis abuse, uncomplicated; E78.5 Hyperlipidemia, unspecified; F17.210 Nicotine dependence, cigarettes, uncomplicated; Y90.9 Presence of alcohol in blood, level not specified; R93.89 Abnormal findings on diagnostic imaging of other specified body structures
CPT/HCPCS: 36415; 70553; 80048; 80061; 83735; 84100; 85025; 93005; 95819; A9575; A4216

== ENCOUNTER → 2023-04-21 | Outpatient (CLI) | payer OTHER, SELFPAY ==
--- OUTSIDE RECORDS SUMMARY | 2023-04-21 05:58 | XMS RPT_ITS | CCD ---
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 Name Role Phone Ham Padilla Unavailable Salvador CoronelrHam Unavailable Unavailable MARBELLA , DR HAM Jha Primary Care Physician [phone] Unavailable Primary Care Provider Porsha SOFIA DO, DR HAM Jha Primary Care Physician [phone] HAM PADILLA MD Attending Salvador FRENCH MD, DR BYRNE Primary Care Unavailable DAVID ROSS, RENE WOLF Attending Natalie FRENCH MD, DR BYRNE Primary Care Unavailable DAVID ROSS, RENE WOLF Attending Natalie FRENCH MD, DR BYRNE Primary Care Unavailable MANLOO ORTEGA, DR BYRNE Primary Care Unavailable MANOLO ORTEGA, DR BYRNE Attending Unavailable MARBELLA , DR HAM Jha Primary Care Unavailcale FRENCH MD, DR BYRNE Attending Unavailable FROMMELT , LADI Attending Unavailable NIMESH ROSS, DR EDWARDS Consulting Unavailable MARBELLA , DR HAM Jha Primary Care KATHI Zafar MD Attending Unavailable MARBELLA , DR HAM Jha Primary Care UnavailHAM Riley MD Attending Unavailable Medications Current Medications Medication Drug Class(es) Dates Sig (Normalized) Sig (Original) aspirin 81 mg delayed release oral tablet (6 sources) Platelet Aggregation Inhibitor, Nonsteroidal Anti-inflammatory Drug Start: 09-02-2021 take 1 tablet by mouth once daily aspirin 81 mg oral delayed release tablet See Instructions, 1 tab(s) Oral qDay, 0 Refill(s) Start Date: 09/02/21 Status: Ordered cephalexin 500 mg oral capsule (2 sources) Cephalosporin Antibacterial Start: 02-17-2022 End: 02-24-2022 cephalexin 500 mg oral capsule Dose : 500 mg = 1 cap(s), Oral, TID, # 21 cap(s), 0 Refill(s), Abscess, 94 Start Date: 02/17/22 Stop Date: 02/24/22 Status: Ordered hydroCHLOROthiazide 25 mg / lisinopril 20 mg oral tablet (6 sources) Thiazide Diuretic, Angiotensin Converting Enzyme Inhibitor Start: 09-28-2022 End: 09-23-2023 take 1 tablet by mouth twice daily hydrochlorothia zide-lisinopril 25 mg-20 mg oral tablet Dose = 1 tab(s), Oral, BID, change in dose, # 180 tab(s), 3 Refill(s), [id number], 177, cm, 09/28/22 16:14:00 EDT, Height, kg, 09/28/22 16:14:00 EDT, Dosing Weight Start Date: 09/28/22 Stop Date: 09/23/23 Status: Ordered Problems Active Problems Problem Classification Problem Date Documented Date Episodic/Chronic Chronic obstructive pulmonary disease and bronchiectasis (5 sources) Chronic obstructive lung disease 09-28-2022 Chronic Disorders of lipid metabolism (6 sources) Hypercholesterolemia 09-05-2018 Chronic Epilepsy; convulsions (1 source) Seizure; Translations: [Unspecified convulsions] Onset: 3 Episodic Essential hypertension (6 sources) Hypertensive disorder 02-20-2017 Chronic Other male genital disorders (6 sources) Impotence of organic origin 09-05-2018 Chronic Other nutritional; endocrine; and metabolic disorders (6 sources) Overweight 09-05-2018 Episodic Peripheral and visceral atherosclerosis (6 sources) Peripheral vascular disease 09-05-2018 Chronic Skin and subcutaneous tissue infections (12 sources) Abscess of skin and/or subcutaneous tissue; Translations: [Cutaneous abscess, unspecified] Onset: 3 Episodic Unclassified (1 source) Unknown / UNK(Unknown) Onset: 8 Unclassified (6 sources) Patient encounter status 11-13-2019 Past or Other Problems Problem Classification Problem Date Documented Date Episodic/Chronic Coronary atherosclerosis and other heart disease (1 source) Coronary atherosclerosis and other heart disease Onset: 03-14-2017 Results Test Name Value Interpretation Reference Range Facil ity Vital Signs Date Time Vital Sign Value Performing Clinician Faci lity 01-23-2023 14:55-0500 Diastolic Blood Pressure Non-Invasive 86 mm[Hg] KATHI KAM MD [facility] 01-23-2023 14:55-0500 Heart rate 64 /min KATHI KAM MD [facility] 01-23-2023 14:55-0500 Respiratory rate 16 /min KATHI KAM MD [facility] 01-23-2023 14:55-0500 Systolic Blood Pressure Non-Invasive 184 mm[Hg] KATHI KAM MD [facility] 01-23-2023 13:13-0500 Diastolic Blood Pressure Non-Invasive 78 mm[Hg] KATHI KAM MD [facility] 01-23-2023 13:13-0500 Heart rate 60 /min KATHI KAM MD [facility] 01-23-2023 13:13-0500 Respiratory rate 16 /min KATHI KAM MD [facility] 01-23-2023 13:13-0500 Systolic Blood Pressure Non-Invasive 164 mm[Hg] KATHI KAM MD [facility] 01-23-2023 11:47-0500 Diastolic Blood Pressure Non-Invasive 65 mm[Hg] KATHI KAM MD [facility] 01-23-2023 11:47-0500 Heart rate 70 /min KATHI KAM MD [facility] 01-23-2023 11:47-0500 Respiratory rate 14 /min KATHI KAM MD [facility] 01-23-2023 11:47-0500 Systolic Blood Pressure Non-Invasive 152 mm[Hg] KATHI KAM MD [facility] 11-20-2022 14:22-0400 Diastolic Blood Pressure Non-Invasive 73 1 LADI FROMQuickoLabsT DO [facility] 11-20-2022 14:22-0400 Heart rate 61 /min LADI FROMMELT DO [facility] 11-20-2022 14:22-0400 Reason For Taking VItal Signs LADI FROMMELT DO [facility] 11-20-2022 14:22-0400 Respiratory rate 16 /min LADI SALDAÑAQuickoLabsT DO [facility] 11-20-2022 14:22-0400 Systolic Blood Pressure Non-Invasive 179 1 LADI Mayday PACT DO [facility] 11-20-2022 12:18-0400 Diastolic Blood Pressure Non-Invasive 73 1 LADI FROMQuickoLabsT DO [facility] 11-20-2022 12:18-0400 Heart rate 56 /min LADI Mayday PACT DO [facility] 11-20-2022 12:18-0400 Mean blood pressure 102 mm[Hg] LADI FROMMELT DO [facility] 11-20-2022 12:18-0400 Reason For Taking VItal Signs LADI FROMQuickoLabsT DO [facility] 11-20-2022 12:18-0400 Respiratory rate 16 /min LADI SALDAÑAQuickoLabsT DO [facility] 11-20-2022 12:18-0400 Systolic Blood Pressure Non-Invasive 168 1 LADI FROMMELT DO [facility] 11-20-2022 11:22-0400 Diastolic Blood Pressure Non-Invasive 78 1 LADI FROMMELT DO [facility] 11-20-2022 11:22-0400 Heart rate 60 /min LADI DUONGServeron [facility] 11-20-2022 11:22-0400 Mean blood pressure 100 mm[Hg] LADI SALDAÑAPlink [facility] 11-20-2022 11:22-0400 Respiratory rate 18 /min LADI DUONGServeron [facility] 11-20-2022 11:22-0400 Systolic Blood Pressure Non-Invasive 161 1 LADI SALDAÑAPlink [facility] 11-20-2022 11:08-0400 Blood Pressure Location LADI SALDAÑAPlink [facility] 11-20-2022 11:08-0400 Body temperature 97.16 [degF] LADI DUONGServeron [facility] 02-17-2022 11:28-0500 Body temperature 97.52 [degF] DR LIGIA GONZALEZ MD [facility] 02-17-2022 11:28-0500 Diastolic Blood Pressure Non-Invasive [address] LIGIA GONZALEZ MD [facility] 02-17-2022 11:28-0500 Heart rate 64 /min DR LIGIA GONZALEZ MD [facility] 02-17-2022 11:28-0500 Respiratory rate 20 /min DR LIGIA GONZALEZ MD [facility] 02-17-2022 11:28-0500 Systolic Blood Pressure Non-Invasive [address] LIGIA GONZALEZ MD [facility] Encounters Encounter Date Encounter Type Care Provider Facility Start: 04-07-[address] CATY FRENCH MD Facilit y:A Start: 03-23-2023 ambulatory RENE PAZ DO Facility:A Start: 03-23-2023 End: 03-24-2023 ambulatory RENE LUCIANO DAVID DO Facility:A Start: 02-27-2023 End: 02-28-2023 ambulatory HAM PADILLA MD Facility:B Start: 02-27-2023 End: 02-27-2023 Patient encounter procedure HAM PADILLA MD [facility] Start: 01-28-2023 ambulatory Leah Rodriguez RN [facility] Clinical Communication Start: 01-28-2023 [facility] Start: 01-23-2023 End: 01-23-2023 Emergency department patient visit KATHI KAM MD Facility:B Start: 01-23-2023 End: 01-23-2023 Emergency department patient visit KATHI KAM MD [facility] Start: 12-14-2022 End: 12-15-[address] HAM SOFIA DO Facility:A Start: 12-14-2022 End: 12-14-[address] CATY FRENCH MD [facility] Start: 11-20-2022 End: 11-20-2022 Emergency department patient visit LADI YOUNG Facility:B Start: 11-20-2022 End: 11-20-2022 Emergency department [facility] Start: 11-06-2022 ambulatory Thaddeus Vaz RN [facility] Clinical Communication Start: 11-06-2022 Patient encounter procedure [facility] Start: 02-17-2022 End: 02-17-2022 Emergency department patient visit DR LIGIA GONZALEZ MD [facility] Start: 03-14-2017 Evaluation and management of inpatient Ham Padilla Facility:[facility] Procedures Date Procedure Procedure Detail Performing Clinician Placement of stent DR LIGIA GONZALEZ MD Plan of Treatment Date Care Activity Detail Author Start: 10-07-2022 Influenza vaccination Influenza Vacc ine (#1) [facility] Start: 2018 RSV Immunization age d 60 or older (1 - 1-dose 60+ series) RSV Immunization aged 60 or older (1 - 1-dose 60+ series) [facility] Start: 2008 Zoster Vaccines (1 of 2) Zoster Vacc cal (1 of 2) [facility] Start: 1977 DTaP/Tdap/Td Vaccine s (1 - Tdap) DTaP/Tdap/Td Vaccines (1 - Tdap) [facility] Start: 1976 Hepatitis C screening Hepatitis C Sc reening [facility] Start: 1970 Depression Screening Depression Scre ening [facility] Start: 10-15-1959 MMR Vaccines (1 of 1 - Standard series) MMR Vaccines (1 of 1 - Standard series) [facility] Start: 04-14-1959 COVID-19 Vaccine (#1) COVID-19 Vacci ne (#1) [facility] Start: 1958 HIV screening HIV Screening [facility] Start: 1958 Lipid panel Lipid Panel [facility] Start: 1958 Screening for malign ant neoplasm of colon [facility] Payers Date Payer Category Payer Unknown [id number] 1960 Unknown [id number] 2.16.8 [id number] 1958 Unknown [id number] 2.16.8 [id number] 1958 Unknown [id number] 2.16.8 [id number] 1958 Unknown [id number] 2.16.8 [id number] 1958 Unknown [id number] 2.16.8 [id number] 1958 Unknown [id number] 2.16.8 [id number] 1958 Unknown [id number] 2.16.8 [id number] 1958 Unknown [id number] 2.16.8 [id number] Social History Date Type Detail Facility Start: 09-05-2018 End: 03-10-2022 Tobacco smoking status Heavy tobacco smoker (finding) [facility] Functional Status Date Assessment Result Facility 01-23-2023 Functional Status Identified as high risk, Door open [facility] 11-20-2022 Functional Status Safety level maintained [facility] 11-20-2022 Functional Status [facility] 02-17-2022 Functional Status Standard Safet y ID band on, Call device within reach, Bed in low position, Wheels locked, Bedside Cart Locked, Safety level maintained [facility] Mental Status Date Assessment Result [facility] 01-23-2023 Mental Status Orientation Oriented x 4 [facility] 01-23-2023 Mental Status [facility] 11-20-2022 Mental Status Orientation Oriented x 4 [facility] 11-20-2022 Mental [facility] 02-17-2022 Mental Status Orientation Oriented x 4 [facility] 02-17-2022 Mental Status [facility] Clinical Notes 02-17-2022 to 01-28-2023 Telephone Encounter - Leah Rodriguez RN - 01/28/2023 9:54 AM ESTTelephone Encounter - Leah Rodriguez RN - 01/28/2023 9:54 AM ESTLaboratoryLaboratoryLaboratoryLaboratory Note Date & Type Note Facility 01-28-2023 Telephone encounter Note S: Patient spoke with [facility] nurse regarding concerns for medication refill B: sodium A: Patient states he had a prescription of sodium and ran out and is concerned it is causing seizures since he has not been taking it. Patient states he called about this yesterday and has not heard back. Patient states he had a seizure last week after he ran out and another one on Monday and is afraid he is going to have another one. Patient states he has an appointment on Monday but is very concerned about having another seizure. Patient advised no alcohol, practice healthy lifestyle, eat balanced diet and verbalized understanding. R: Dr. French paged and advised okay for Sodium to be called into patient pharmacy. Advised patient needs to contact his neurologist due to seizure activity. Advised patient should be refraining from alcohol intake and will discuss further at appointment. Sodium Chloride 1000mg take twice daily was called into [facility] for patient for a 30 day supply with no refills. Patient states he has been trying to refrain from drinking alcohol but still has some drinks here and there. Has not contacted a neurologist yet but has a number. States he will be at office on Monday for appointment. Patient given care advice per protocol. Patient understands care advice. No further needs at this time. Patient instructed to call back with new or worsening symptoms. Reason for Disposition Epilepsy and prevention of seizures, questions about Protocols used: [id number] 01-28-2023 Miscellaneous Notes S: Patient spoke with [facility] nurse regarding concerns for medication refill B: sodium A: Patient states he had a prescription of sodium and ran out and is concerned it is causing seizures since he has not been taking it. Patient states he called about this yesterday and has not heard back. Patient states he had a seizure last week after he ran out and another one on Monday and is afraid he is going to have another one. Patient states he has an appointment on Monday but is very concerned about having another seizure. Patient advised no alcohol, practice healthy lifestyle, eat balanced diet and verbalized understanding. R: Dr. French paged and advised okay for Sodium to be called into patient pharmacy. Advised patient needs to contact his neurologist due to seizure activity. Advised patient should be refraining from alcohol intake and will discuss further at appointment. Sodium Chloride 1000mg take twice daily was called into [facility] for patient for a 30 day supply with no refills. Patient states he has been trying to refrain from drinking alcohol but still has some drinks here and there. Has not contacted a neurologist yet but has a number. States he will be at office on Monday for appointment. Patient given care advice per protocol. Patient understands care advice. No further needs at this time. Patient instructed to call back with new or worsening symptoms. Reason for Disposition Epilepsy and prevention of seizures, questions about Protocols used: [id number] documented in this encounter [facility] 01-23-2023 Hospital Discharg e instructions Patient Education 01/23/2023 15:05:07 Seizure, Recurrent (Adult) Recurrent Seizure (Adult) You have had another seizure today. A common cause of seizures that keep happening (recurrent seizures) is missing doses of seizure medicine. But sometimes seizures are hard to control even when you take the medicine correctly. If this is the case for you, your healthcare provider may need to increase your dosage. Or you may need to add or change to another medicine. Home care Follow these tips when caring for yourself at home. For this seizure: Seizures aren t predictable. So avoid doing anything that might cause danger to you or other people if you have another seizure. Until the seizures are under good control, take these precautions: oDon t drive, ride a motorcycle, or ride a bike. oDon t operate dangerous equipment such as power tools oTake showers instead of baths. oDon t swim or climb ladders, trees, or roofs. Tell your close friends and relatives about your seizure. Teach them what to do for you if it happens again. If medicine was prescribed to prevent seizures, take it exactly as directed. It does not work when taken as needed. Missing doses will increase the risk of having another seizure. If you miss a dose, take the missed dose as soon as you remember. If it is almost time for your next dose, skip the missed dose. Restart the medicine at your next scheduled time. Don t take extra medicine to make up the missed dose. Wear a Medic-Alert bracelet to let emergency personnel know about your condition. Follow a regular sleep schedule such that you get at least 6 to 8 hours of restful sleep every night. This is especially important when you are sick with a cold or flu and/or another type of infection. For future seizures, if you are alone: If you feel a seizure coming on, lie down on a bed or on the floor with something soft under your head. Lie on your left side, not on your back. This will keep you from falling. It will also let fluid drain out of your mouth and prevent choking. Be sure you are clear of any objects that might injure you during the seizure. Call for help if there is time. For future seizures, if someone is with you: The person should help you get into a safe position and call for help. The person shouldn t try to force anything in your mouth once the seizure begins. This could harm your teeth or jaw. Follow-up care Follow up with your healthcare provider. Keep a seizure calendar to record how often you have a seizure. If you are being started on anti-seizure medicine, make sure that you use additional control. Seizure medicine can affect how well control pills work, and you could become . Avoid alcohol until your doctor tells you it s OK. Note: For the safety of yourself and others on the road, certain states require that the treating doctor tell the Public Health Department about any adult who is treated for a seizure and is at risk of more seizures. In this case, the Department of Motor Vehicles will be told. 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 Contact your treating doctor to find out if your state requires the reporting of patients with a seizures condition. When to seek medical advice Call your healthcare provider right away if any of these occur: Seizures happen more often or last longer than usual A seizure lasts over 5 minutes You don t wake up between seizures Confusion that lasts more than 30 minutes after a seizure Injury during a seizure Fever over 100.4 F (38.0 C), or as advised Unusual irritability, drowsiness, or confusion Stiff or painful neck Headache that gets worse [id number] [employer]. [address] [place] [address], [place] [address]. All rights reserved. This information is not intended as a substitute for professional medical care. Always follow your healthcare professional's instructions. Follow Up Care 01/23/2023 11:48:12 With:ZACHARY YOUNG Address: When:3-7 days With:HAM SOFIA DO Address: [address] [place] [phone] When:2-4 days With:Go to emergency room if symptoms worsen Address:Unknown When:2-[address] [facility] 01-23-2023 Emergency department Discharge summary Discharge Instructions Thank you for allowing [facility] to assist you with your healthcare needs. The following is important discharge information regarding your hospital visit. Diagnosis from Today's Visit Fall Seizure What to Do Next Instructions from Your Care Team Take your other medications including the folic acid and thiamine as directed. No qualifying data available. Post Acute Orders No qualifying data available. You Need to Schedule the Following Appointments Follow Up with ZACHARY YOUNG When Within 3-7 days Where: Follow Up with HAM SOFIA DO When Within 2-4 days Where: [address] [place] [address] [phone] Follow Up with Go to emergency room if symptoms worsen When Within 2-4 days Allergies NKA Medications Please ask your primary doctor or pharmacist before taking any other medication not listed, including over the counter drugs, herbal medications, vitamins and or supplements as they may interact with your home medications. What How Much When Instructions Last Dose New levETIRAcetam (Keppra 500 mg oral tablet) 1 tab(s) by mouth Two (2) times a day Printed Prescription Unchanged aspirin (aspirin 81 mg oral delayed release tablet) See instructions 1 tab(s) Oral qDay Unchanged hydrochlorothiazide-lisinopril (hydrochlorothiazide-lisinopril 25 mg-20 mg oral tablet) 1 tab(s) by mouth Two (2) times a day Duration: 90 Days change in dose Unchanged metoprolol (Metoprolol Succinate ER 200 mg oral TABLET extended release) 1 tab(s) by mouth Once a day Unchanged tadalafil (tadalafil 5 mg oral tablet) 1 tab(s) by mouth Once a day Please take this list to your next doctor s visit. Bring all medications you take, including over the counter medications, herbals and other supplements with you to your doctor s visit. Patients and families are reminded to discard old lists and to update any records with all medication providers or retail pharmacies. Education Materials Recurrent Seizure (Adult) You have had another seizure today. A common cause of seizures that keep happening (recurrent seizures) is missing doses of seizure medicine. But sometimes seizures are hard to control even when you take the medicine correctly. If this is the case for you, your healthcare provider may need to increase your dosage. Or you may need to add or change to another medicine. Home care Follow these tips when caring for yourself at home. For this seizure: Seizures aren t predictable. So avoid doing anything that might cause danger to you or other people if you have another seizure. Until the seizures are under good control, take these precautions: oDon t drive, ride a motorcycle, or ride a bike. oDon t operate dangerous equipment such as power tools oTake showers instead of baths. oDon t swim or climb ladders, trees, or roofs. Tell your close friends and relatives about your seizure. Teach them what to do for you if it happens again. If medicine was prescribed to prevent seizures, take it exactly as directed. It does not work when taken as needed. Missing doses will increase the risk of having another seizure. If you miss a dose, take the missed dose as soon as you remember. If it is almost time for your next dose, skip the missed dose. Restart the medicine at your next scheduled time. Don t take extra medicine to make up the missed dose. Wear a Medic-Alert bracelet to let emergency personnel know about your condition. Follow a regular sleep schedule such that you get at least 6 to 8 hours of restful sleep every night. This is especially important when you are sick with a cold or flu and/or another type of infection. For future seizures, if you are alone: If you feel a seizure coming on, lie down on a bed or on the floor with something soft under your head. Lie on your left side, not on your back. This will keep you from falling. It will also let fluid drain out of your mouth and prevent choking. Be sure you are clear of any objects that might injure you during the seizure. Call for help if there is time. For future seizures, if someone is with you: The person should help you get into a safe position and call for help. The person shouldn t try to force anything in your mouth once the seizure begins. This could harm your teeth or jaw. Follow-up care Follow up with your healthcare provider. Keep a seizure calendar to record how often you have a seizure. If you are being started on anti-seizure medicine, make sure that you use additional control. Seizure medicine can affect how well control pills work, and you could become . Avoid alcohol until your doctor tells you it s OK. Note: For the safety of yourself and others on the road, certain states require that the treating doctor tell the Public Health Department about any adult who is treated for a seizure and is at risk of more seizures. In this case, the Department of Motor Vehicles will be told. 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 Contact your treating doctor to find out if your state requires the reporting of patients with a seizures condition. When to seek medical advice Call your healthcare provider right away if any of these occur: Seizures happen more often or last longer than usual A seizure lasts over 5 minutes You don t wake up between seizures Confusion that lasts more than 30 minutes after a seizure Injury during a seizure Fever over 100.4 F (38.0 C), or as advised Unusual irritability, drowsiness, or confusion Stiff or painful neck Headache that gets worse [phone] [employer]. [address] [place] [address]. All rights reserved. This information is not intended as a substitute for professional medical care. Always follow your healthcare professional's instructions. Additional Information VACCINATE! IT SAVES LIVES! Members of the community who have not yet received the COVID-19 vaccine and would like to receive it can visit one of [facility] vaccine clinics. There are many vaccine clinic locations within the [facility]. For locations and available times, please visit [email or web address] .[email or web address]/. It is important to note that some COVID mobile vaccine clinics are held outdoors and may be canceled in rainy or stormy conditions. To learn more about pediatric vaccinations (ages 5-11), we invite you to visit the [facility] webpage. https://www.[facility].org/ pages/[email or web address]-Ltnrf-Oygsigauiml-Fr fbeykozg-Jupdl-Yghowlonz.html To learn more about the COVID-19 vaccine, we invite you to visit the CDC website for a list of frequently asked questions. https://www.cdc.gov/coronavirus /2019-ncov/vaccines/faq.html [facility] [employer] Patient Portal Access Instructions: Stay connected with your healthcare team and access your personal medical information anytime with the [facility] Patient Portal. If you would like a full copy of your medical records please contact the [facility] Medical Records Department Monday through Monday between 8a.m. and 4:30p.m. Please follow the directions below to access the portal: 1.Access the email account you provided upon registration to the [facility].2.Look for an invitation email from [facility].3.Open the email and access the invitation link: Accept Invitation to [facility]4.Fill in the required bo to create your account. Sign into [email or web address] with your username and password that you created in the above steps to stay up to date. You can then view a summary of results, a summary of your visits, and the ability to download your summaries to your computer or send the information securely to a physician. Remember that your healthcare information is confidential, so carefully consider who you will allow to register on the [facility] Patient Portal for access to your information. You can also access the [facility] Patient Portal on the [employer] ramon. Simply click on Health Records under Health Data and then click on the [employer] logo. HOW TO SAFELY DISPOSE OF PRESCRIPTION MEDICATIONS Please use one of the following methods to safely dispose of your unused medications. 1.Use a drug disposal kit: the drug disposal pouch allows you to safely discard your old and unused drugs. Ask your nurse to give you one when you are discharged.2.Visit a local take-back location: Many local pharmacies and police departments have programs that collect old and unwanted prescription drugs. Call your local pharmacy or go to http://bit.Crunched/0N8Wg2c to find one close to you.3.Make use of household items: Use cat litter or old coffee grounds to dispose medications if other options are not available. Mix your drugs with these household products, seal them in an airtight container and throw it into the garbage. Call [facility]: [phone] to be sure your drugs can be disposed of in this way. Some medicines may require a different approach.4.Never flush your medications down the toilet. IF YOU HAVE BEEN PRESCRIBED AN OPIOIDS FOR PAIN If you have been prescribed an opioid (such as hydrocodone, oxycodone or morphine), it is critical to understand the possible side effects and risks of opioid pain medications. Even when taken as directed, opioids can have several side effects including: Tolerance, meaning you might need to take more of a medication for the same pain relief. Nausea, vomiting and/or constipation. Sleepiness, dizziness, dry mouth, confusion, depression or itching. Physical dependence, meaning you have withdrawal symptoms when a medication is stopped ? this can develop within a few days. KNOW YOUR RESPONSIBILITIES It is important to know exactly how much and how often to take the opioid pain medications you are prescribed. Never take opioids in higher amounts or more often than prescribed. Do not combine opioids with alcohol or other drugs that cause drowsiness, such as benzodiazepines, also known as benzos, including diazepam and alprazolam, muscle relaxants or sleep aids. Never sell or share prescription opioids. This is illegal. Store opioids in a secure place and out of reach of others (including children, family, friends and visitors). The last page(s) of this document has been signed and retained as a CHART COPY Signatures Patient Education Materials Seizure, Recurrent (Adult) Medication Leaflets My discharge plan and instructions have been reviewed and explained to me and IBRAN BENJAMIN J understand my current condition and have read and understand these discharge instructions. I have received a written copy of the plan/instructions. If I have questions, I am aware that I should contact my doctor. Patient/Jelly Maker Signature: Date/Time: Relationship to Patient: Witness Name/Signature: Date/Time: [facility] 01-23-2023 Note ORIGINAL HISTORY: Pain, trauma COMPARISON: No TECHNIQUE: Cervical spine CT with sagittal and coronal reconstructions. This exam was performed according to our departmental dose optimization program, and includes the following measures where applicable: automated exposure control, adjustment of the mAs and/or kVp according to patient size and/or exam, and an iterative reconstruction algorithm. FINDINGS: There are no acute fractures or dislocations. Spinous tilted in the scanner. The individual vertebral bodies are intact. The prevertebral soft tissues are unremarkable in appearance. IMPRESSION: No acute fracture. Interpreted by: Jeremy Nuñez MD Preliminary Report By: Jeremy Nuñez MD Electronically signed By Jeremy Nuñez MD Dictated Date: 01/23/2023 12:54:41 PM Prelim Date: 01/23/2023 12:56:27 PM Sign Date: 01/23/2023 12:56:27 PM Ordering Provider: [facility] 01-23-2023 Note ORIGINAL HISTORY: fall, seizure COMPARISON: 20 November 2022 TECHNIQUE: Routine non-contrast head CT with sagittal and coronal reconstructions This exam was performed according to our departmental dose optimization program, and includes the following measures where applicable: automated exposure control, adjustment of the mAs and/or kVp according to patient size and/or exam, and an iterative reconstruction algorithm. FINDINGS: The ventricles and sulci are normal to mildly enlarged. There are no abnormal intra or extra-axial fluid collections. There is mild irregular decreased attenuation in the cerebral white matter; rhoades-white matter differentiation is maintained. The calvaria and the bones of the base of the skull are intact. IMPRESSION: No significant interval change. Interpreted by: Jeremy Nuñez MD Preliminary Report By: Jeremy Nuñez MD Electronically signed By Jeremy Nuñez MD Dictated Date: 01/23/2023 12:43:56 PM Prelim Date: 01/23/2023 12:56:57 PM Sign Date: 01/23/2023 12:56:57 PM Ordering Provider: [facility] 01-23-2023 Note Sinus rhythm Probable left ventricular hypertrophy Borderline prolonged QT interval Electronic Signature: KATHI KAM MD 01/23/2023 12:05:[address] [facility] 11-20-2022 Note ORIGINAL EXAMINATION: ONE XRAY VIEW OF THE CHEST 11/20/2022 11:47 am COMPARISON: February 21, 2017 HISTORY: ORDERING SYSTEM PROVIDED HISTORY: Reason for Exam: seizure FINDINGS: The heart is normal in size and there is no vascular congestion present. A nodular density is evident at the left lung base, new since the prior study. Upper lungs are clear. No pleural fluid seen. There are degenerative changes in the spine. IMPRESSION: No acute process. Left basilar nodular density which could represent a portion of pericardial fat pad. PA and lateral views are recommended for further assessment when feasible. Interpreted by: Shay Soto MD Preliminary Report By: Shay Soto MD Electronically signed By Shay Soto MD Dictated Date: 11/20/2022 11:50:07 AM Prelim Date: 11/20/2022 11:50:45 AM Sign Date: 11/20/2022 11:50:45 AM Ordering Provider: LADI YOUNG [facility] 11-20-2022 Note ORIGINAL EXAMINATION: CT OF THE HEAD WITHOUT CONTRAST 11/20/2022 11:46 am TECHNIQUE: CT of the head was performed without the administration of intravenous contrast. Automated exposure control, iterative reconstruction, and/or weight based adjustment of the mA/kV was utilized to reduce the radiation dose to as low as reasonably achievable. COMPARISON: None. HISTORY: ORDERING SYSTEM PROVIDED HISTORY: Reason for Exam: seizure FINDINGS: BRAIN/VENTRICLES: There is no acute intracranial hemorrhage, mass effect or midline shift. No abnormal extra-axial fluid collection. The rhoades-white differentiation is maintained without evidence of an acute infarct. There is no evidence of hydrocephalus. Minor atherosclerotic aortic and coronary arterial calcifications noted. ORBITS: The visualized portion of the orbits demonstrate no acute abnormality. SINUSES: The visualized paranasal sinuses and mastoid air cells demonstrate no acute abnormality. SOFT TISSUES/SKULL: No acute abnormality of the visualized skull or soft tissues. IMPRESSION: No acute intracranial abnormality. Interpreted by: Rico Nicole MD Preliminary Report By: Rico Nicole MD Electronically signed By Rico Nicole MD Dictated Date: 11/20/2022 11:49:33 AM Prelim Date: 11/20/2022 11:50:03 AM Sign Date: 11/20/2022 11:50:03 AM Ordering Provider: LADI YOUNG [facility] 11-20-[address] elevation, consider anterolateral injury Compared to ECG at 02/21/2017 19:32:32 ABNORMAL ECG Electronic Signature: LADI YOUNG DO 11/20/2022 11:16:[address] [facility] 11-06-2022 Telephone encounter Note S: Maggie from [employer] spoke with [facility] nurse regarding critical lab result B: 11/05/22 A: Maggie from [employer] calling with critical sodium result of 128. Dr Delgado called R: No new orders given by Dr Delgado. No further needs at this time. Reason for Disposition Lab result questions Lab or radiology calling with CRITICAL test results Protocols used: Information Only Call - No [id number], PCP Call - No [id number] [facility] 11-06-2022 Miscellaneous Notes S: Maggie saldaña [employer] spoke with CAC nurse regarding critical lab result B: 11/05/22 A: Maggie from [employer] calling with critical sodium result of 128. Dr Delgado called R: No new orders given by Dr Delgado. No further needs at this time. Reason for Disposition Lab result questions Lab or radiology calling with CRITICAL test results Protocols used: Information Only Call - No [id number], PCP Call - No [id number] documented in this encounter [facility] 05-18-2022 Evaluation + Plan note Future Scheduled TestsProstate Specific Antigen 05/18/22Prostate Specific Antigen 09/28/22Lipid Profile 05/18/22Lipid Profile 09/28/22Complete Metabolic Panel 05/18/22Complete Metabolic Panel 09/28/22 [facility] 02-17-2022 Hospital Discharg e instructions Patient Education 02/17/2022 11:59:59 ABSCESS, I and D Abscess [Incision & Drainage] An abscess (sometimes called a boil ) occurs when bacteria get trapped under the skin and begin to grow. Pus forms inside the abscess as the body responds to the bacteria. An abscess can occur with an insect bite, ingrown hair, blocked oil gland, pimple, cyst, or puncture wound. Treatment of your abscess has required an incision to drain the pus. If the abscess pocket was large, a gauze packing may have been inserted. This will need to be removed and possibly replaced on your next visit. Antibiotics are not required in the treatment of a simple abscess, unless the infection is spreading into the skin around the wound (known as cellulitis ). Healing of the wound will take about one to two weeks depending on the size of the abscess. Healthy tissue will grow from the bottom and sides of the opening until it seals over. Home Care: The wound may drain for the first two days. Cover the wound with a clean dry dressing. If the dressing becomes soaked with blood or pus, change it. If a gauze packing was placed inside the abscess cavity, you may be advised to remove it yourself. You may do this in the shower. Once the packing is removed, you should wash the area in the shower or bath 3 to 4 times a day, until the skin opening has closed. If you were prescribed antibiotics, take them as directed until they are all gone. You may use acetaminophen (Tylenol) or ibuprofen (Motrin, Advil) to control pain, unless another pain medicine was prescribed. [ NOTE: If you have liver disease or ever had a stomach ulcer, talk with your doctor before using these medicines.] Follow Up with your doctor as advised by our staff. If a gauze packing was inserted in your wound, it should be removed in 1-2 days. Check your wound every day for the signs of worsening infection listed below. Get Prompt Medical Attention if any of the following occur: Increasing redness or swelling Red streaks in the skin leading away from the wound Increasing local pain or swelling Continued pus draining from the wound two days after treatment Fever of 100.4 F (38 C) or higher, or as directed by your healthcare provider [phone] [employer]. [address] [place] [address], [place] [id number]. All rights reserved. This information is not intended as a substitute for professional medical care. Always follow your healthcare professional's instructions. Follow Up Care 02/17/2022 11:24:43 With:NOAH BATISTA MD, Surgery Address: [address] [facility] [facility] [place] [address]- [phone] When:2-4 days [facility] Jareth 02-17-2022 Emergency department Discharge summary Discharge Instructions Thank you for allowing [facility] to assist you with your healthcare needs. The following is important discharge information regarding your hospital visit. Diagnosis from Today's Visit Abscess Abscess - simple What to Do Next Instructions from Your Care Team No qualifying data available. Post Acute Orders No qualifying data available. You Need to Schedule the Following Appointments Follow Up with NOAH BATISTA MD, Surgery When Within 2-4 days Where: [address] [facility] [address] [facility] [place] [address]- [phone] Allergies NKA Medications Please ask your primary doctor or pharmacist before taking any other medication not listed, including over the counter drugs, herbal medications, vitamins and or supplements as they may interact with your home medications. What How Much When Why Instructions Last Dose New cephalexin (cephalexin 500 mg oral capsule) 1 cap by mouth Three (3) times a day Abscess Duration: 7 Days Printed Prescription New cephalexin (cephalexin 500 mg oral capsule) 1 cap by mouth Three (3) times a day Abscess Duration: 7 Days Printed Prescription Unchanged aspirin (aspirin 81 mg oral delayed release tablet) 1 tab(s) by mouth Once a day Unchanged hydrochlorothiazide-lisinopril (hydrochlorothiazide-lisinopril 25 mg-20 mg oral tablet) See instructions TAKE 1 TABLET EVERY DAY Unchanged metoprolol (Metoprolol Succinate ER 200 mg oral TABLET extended release) 1 tab(s) by mouth Once a day Unchanged tadalafil (tadalafil 5 mg oral tablet) 1 tab(s) by mouth Once a day Please take this list to your next doctor s visit. Bring all medications you take, including over the counter medications, herbals and other supplements with you to your doctor s visit. Patients and families are reminded to discard old lists and to update any records with all medication providers or retail pharmacies. Education Materials Abscess [Incision & Drainage] An abscess (sometimes called a boil ) occurs when bacteria get trapped under the skin and begin to grow. Pus forms inside the abscess as the body responds to the bacteria. An abscess can occur with an insect bite, ingrown hair, blocked oil gland, pimple, cyst, or puncture wound. Treatment of your abscess has required an incision to drain the pus. If the abscess pocket was large, a gauze packing may have been inserted. This will need to be removed and possibly replaced on your next visit. Antibiotics are not required in the treatment of a simple abscess, unless the infection is spreading into the skin around the wound (known as cellulitis ). Healing of the wound will take about one to two weeks depending on the size of the abscess. Healthy tissue will grow from the bottom and sides of the opening until it seals over. Home Care: The wound may drain for the first two days. Cover the wound with a clean dry dressing. If the dressing becomes soaked with blood or pus, change it. If a gauze packing was placed inside the abscess cavity, you may be advised to remove it yourself. You may do this in the shower. Once the packing is removed, you should wash the area in the shower or bath 3 to 4 times a day, until the skin opening has closed. If you were prescribed antibiotics, take them as directed until they are all gone. You may use acetaminophen (Tylenol) or ibuprofen (Motrin, Advil) to control pain, unless another pain medicine was prescribed. [ NOTE: If you have liver disease or ever had a stomach ulcer, talk with your doctor before using these medicines.] Follow Up with your doctor as advised by our staff. If a gauze packing was inserted in your wound, it should be removed in 1-2 days. Check your wound every day for the signs of worsening infection listed below. Get Prompt Medical Attention if any of the following occur: Increasing redness or swelling Red streaks in the skin leading away from the wound Increasing local pain or swelling Continued pus draining from the wound two days after treatment Fever of 100.4 F (38 C) or higher, or as directed by your healthcare provider [phone] [employer]. [address] [place] [address], [place] [address]. All rights reserved. This information is not intended as a substitute for professional medical care. Always follow your healthcare professional's instructions. Additional Information VACCINATE! IT SAVES LIVES! Members of the community who have not yet received the COVID-19 vaccine and would like to receive it can visit one of [facility] vaccine clinics. There are many vaccine clinic locations within the [facility]. For locations and available times, please visit [email or web address]. It is important to note that some COVID mobile vaccine clinics are held outdoors and may be canceled in rainy or stormy conditions. To learn more about pediatric vaccinations (ages 5-11), we invite you to visit the [facility] webpage. https://www.[facility].org/ pages/1824-Zxunx-Hhtoszszubo-Fr iqhrjydj-Aqkpw-Aoylyacdp.html To learn more about the COVID-19 vaccine, we invite you to visit the [facility] website for a list of frequently asked questions. [email or web address] -Frequently_[email or web address]-Questions.pdf [facility] Patient Portal Access Instructions: Stay connected with your healthcare team and access your personal medical information anytime with the [facility] Patient Portal. If you would like a full copy of your medical records please contact the [facility] Medical Records Department Monday through Monday between 8a.m. and 4:30p.m. Please follow the directions below to access the portal: 1.Access the email account you provided upon registration to the hospital.2.Look for an invitation email from [facility].3.Open the email and access the invitation link: Accept Invitation to [facility]4.Fill in the required bo to create your account. Sign into [email or web address] with your username and password that you created in the above steps to stay up to date. You can then view a summary of results, a summary of your visits, and the ability to download your summaries to your computer or send the information securely to a physician. Remember that your healthcare information is confidential, so carefully consider who you will allow to register on the [facility] Patient Portal for access to your information. You can also access the [facility] Patient Portal on the [employer]. Simply click on Health Records under Health Data and then click on the [employer] logo. HOW TO SAFELY DISPOSE OF PRESCRIPTION MEDICATIONS Please use one of the following methods to safely dispose of your unused medications. 1.Use a drug disposal kit: the drug disposal pouch allows you to safely discard your old and unused drugs. Ask your nurse to give you one when you are discharged.2.Visit a local take-back location: Many local pharmacies and police departments have programs that collect old and unwanted prescription drugs. Call your local pharmacy or go to http://Bbready.com.Crunched/8K0My3m to find one close to you.3.Make use of household items: Use cat litter or old coffee grounds to dispose medications if other options are not available. Mix your drugs with these household products, seal them in an airtight container and throw it into the garbage. Call [facility]: [phone] to be sure your drugs can be disposed of in this way. Some medicines may require a different approach.4.Never flush your medications down the toilet. IF YOU HAVE BEEN PRESCRIBED AN OPIOIDS FOR PAIN If you have been prescribed an opioid (such as hydrocodone, oxycodone or morphine), it is critical to understand the possible side effects and risks of opioid pain medications. Even when taken as directed, opioids can have several side effects including: Tolerance, meaning you might need to take more of a medication for the same pain relief. Nausea, vomiting and/or constipation. Sleepiness, dizziness, dry mouth, confusion, depression or itching. Physical dependence, meaning you have withdrawal symptoms when a medication is stopped ? this can develop within a few days. KNOW YOUR RESPONSIBILITIES It is important to know exactly how much and how often to take the opioid pain medications you are prescribed. Never take opioids in higher amounts or more often than prescribed. Do not combine opioids with alcohol or other drugs that cause drowsiness, such as benzodiazepines, also known as benzos, including diazepam and alprazolam, muscle relaxants or sleep aids. Never sell or share prescription opioids. This is illegal. Store opioids in a secure place and out of reach of others (including children, family, friends and visitors). The last page(s) of this document has been signed and retained as a CHART COPY Signatures Patient Education Materials ABSCESS, I and D Medication Leaflets My discharge plan and instructions have been reviewed and explained to me and BRAN Taveras BENJAMIN J understand my current condition and have read and understand these discharge instructions. I have received a written copy of the plan/instructions. If I have questions, I am aware that I should contact my doctor. Patient/Jelly Maker Signature: Date/Time: Relationship to Patient: Witness Name/Signature: Date/Time: [facility] Evaluation + Plan note Future Scheduled TestsProstate Specific Antigen 4Lipid Profile 05/18/22Complete Metabolic Panel 05/18/[address] [facility] Evaluation + Plan note Future Appointments Appointment Date:01/13/2023 02:30:00 PM Scheduled Provider: Location:[facility] Appointment Type:PM EMG/NCV 1 Extremity Future Scheduled TestsProstate Specific Antigen 05/18/22Prostate Specific Antigen 09/28/22Lipid Profile 05/18/22Lipid Profile 09/28/22Complete Metabolic Panel 05/18/22Complete Metabolic Panel 09/28/[address] [facility] Evaluation + Plan note Future Appointments Appointment Date:03/15/2023 01:00:00 PM Scheduled Provider:RENE HERNANDEZ DO Location:[facility] Appointment Type:[employer] Future Scheduled TestsProstate Specific Antigen 05/18/22Prostate Specific Antigen 09/28/22Lipid Profile 4/Lipid Profile 09/28/22Complete Metabolic Panel 05/18/22Complete Metabolic Panel 09/28/[address] [facility] Hospital course Narrative No data available for this section [facility] Hospital Discharge instructions No data available for this section [facility] Progress note No data available for this section [facility] Summary Purpose Family History No Family History Records Found No data available for this section No data available for this section No data available for this section No Family History Records Found No data available for this section No data available for this section No Family History Records Found Advance Directives No Advanced Directives Records FoundNo Advanced Directives Records FoundNo Advanced Directives Records Found Additional Source Comments (unrecognized sect ion and content) No Status Records FoundNo Status Records FoundNo Status Records Found INFORMATION SOURCE (unrecogn ized section and content) DATE CREATED AUTHOR AUTHOR'S ORGANIZ ATION 01/29/[address] [facility] DATE CREATED AUTHOR AUTHOR'S ORGANIZ ATION 04/14/2023 [facility] ([place]) Care Team (unrecognized sect ion and content) Care Team Personnel Name: HAM SOFIA DO Position: P4 Physician - Primary Care Member Role: Primary Care Physician Address: Address: [address] Name: LIGIA GONZALEZ MD Position: ED Physician Member Role: Attending Physician Address: Address: [address] [place] [address] Name: Radha Schafer RN Position: ED RN Member Role: ED RN Care Team Related Persons Name: MATILDA HAYDEN Address: Home [address] [place], [place] [id number] Reason for Visit (unrecogniz ed section and content) Reason Onset Date Comments Seizures 01/28/2023 Patient Care team informatio n (unrecognized section and content) Care Team Personnel Name: HAM SOFIA DO Position: P4 Physician - Primary Care Member Role: Primary Care Physician Address: Address: [address] Name: LADI YOUNG DO Position: ED Physician Member Role: ED Physician Address: Address: [address] Care Team Related Persons Name: MATILDA HAYDEN Address: Home [address] [facility] [place], [place] [id number] Care Team Personnel Name: HAM SOFIA DO Position: P4 Physician - Primary Care Member Role: Primary Care Physician Address: Address: [address] [place], [place] [address] Care Team Related Persons Name: MATILDA HAYDEN Address: Home [address] [address] [place], [place] [phone] Care Team Personnel Name: HAM SOFIA DO Position: P4 Physician - Primary Care Member Role: Primary Care Physician Address: Address: [address] [place], [place] [address] Name: MAGDI Grover Position: ED RN Member Role: ED RN Name: KATHI KAM MD Position: ED Physician Member Role: ED Physician Address: Address: [place] [address]- Care Team Related Persons Name: MATILDA HAYDEN Address: Home [address] [address], [place] [id number] Care Team Related Persons Name: MATILDA HAYDEN Address: Home [address] [address], [place] [phone] Care Team Related Persons Name: MATILDA HAYDEN Address: Home [address] [address] [place], [place] [id number] FOR RECORDS PERTAINING TO PATIENTS WHO ARE OR HAVE BEEN ENROLLED IN A CHEMICAL DEPENDENCY/SUBSTANCEABUSE PROGRAM, SOME INFORMATION MAY BE OMITTED. This clinical summary was aggregated from multiple sources. Caution should be exercised in using it in the provision of clinical care. This summary normalizes information from multiple sources, and as a consequence, information in this document may materially change the coding, format and clinical context of patient data. In addition, data may be omitted in some cases. CLINICAL DECISIONS SHOULD BE BASED ON THE PRIMARY CLINICAL RECORDS. [facility] [employer] provides no warranty or guarantee of the accuracy or completeness of information in this document.
--- NOTE | 2023-04-21 06:09 | ECHOCS_ITS ---
Reason For Study: Pre Op Procedure This was a 2D Doppler, Color Flow transthoracic echocardiogram. Contrast injection was performed. The study was technically difficult. Exam performed in department. Left Ventricle Normal size and thickness. The left ventricular ejection fraction is 65 %. Diastolic function is indeterminate. Right Ventricle Normal right ventricle. Atria There is moderate biatrial dilatation. Mitral Valve Mild mitral annular calcification. There is Severe focal posterior mitral annular calcification. Moderate (2+) mitral valve insufficiency. Tricuspid Valve Normal tricuspid valve. Aortic Valve Trisinus/trileaflet aortic valve. Pulmonic Valve The pulmonic valve is not well visualized. Great Vessels Normal sized aortic root. Pericardium/Pleural No pericardial effusion. Medication Diluted definity 2.5ml given slow IV push to enhance endocardial definition. MMode/2D Measurements & Calculations LVIDd: 4.8 cm IVSd: 1.1 cm Ao root diam: 3.6 cm LVIDs: 2.8 cm LVPWd: 1.1 cm LA dimension: 4.5 cm RVDd: 3.9 cm FS: 41.4 % LAV(MOD-bp): 106.8 ml LVAd ap4: 43.8 cm2 SV(MOD-sp4): 112.9 ml LAV(MOD-bp) Indexed: 49.9 ml/m2 LVLd ap4: 9.4 cm LAV(MOD-sp2): 118.4 ml EDV(MOD-sp4): 167.9 ml LAV(MOD-sp4): 97.5 ml EDV(sp4-el): 172.1 ml LVAs ap4: 21.9 cm2 LVLs ap4: 7.4 cm ESV(MOD-sp4): 55.0 ml ESV(sp4-el): 55.3 ml EF(MOD-sp4): 67.2 % EF(sp4-el): 67.9 % SV(sp4-el): 116.8 ml LA A4 area: 28.6 cm2 RA A4 area: 26.6 cm2 TAPSE: 2.3 cm Time Measurements MV dec time: 0.22 sec Doppler Measurements & Calculations MV E max seven: 135.7 cm/sec Lat Peak E' Seven: 6.9 cm/sec Med Peak E' Seven: 8.2 cm/sec MV A max seven: 72.4 cm/sec E/E' lat: 19.5 E/E' med: 16.5 MV E/A: 1.9 MV V2 max: 173.4 cm/sec MV P1/2t max seven: 175.5 cm/sec Ao V2 max: 135.7 cm/sec MV max P.0 mmHg MV P1/2t: 77.0 msec Ao max P.4 mmHg MV V2 mean: 72.0 cm/sec Ao V2 mean: 84.2 cm/sec MV mean P.7 mmHg MV dec slope: 667.5 cm/sec2 Ao mean P.4 mmHg MV V2 VTI: 50.3 cm MVA(P1/2t): 2.9 cm2 Ao V2 VTI: 34.1 cm AV (velocity ratio): 0.81 LV V1 max: 108.0 cm/sec MR max seven: 648.6 cm/sec PA V2 max: 87.2 cm/sec LV V1 max P.7 mmHg MR max P.2 mmHg LV V1 mean P.3 mmHg MR mean seven: 507.6 cm/sec LV V1 mean: 70.2 cm/sec MR mean P.0 mmHg LV V1 VTI: 27.5 cm MR VTI: 272.6 cm ECHO/Echo Complete W/ Contrast Interpretation Summary The left ventricular ejection fraction is 65 %. Diastolic function is indeterminate. Moderate (2+) mitral valve insufficiency. There is Severe focal posterior mitral annular calcification. Ordering Physician: Lynn Acharya Referring Physician: Lynn Acharya Performed By: Clifford Maki [facility]
--- NOTE | 2023-04-21 14:51 | STRESSREP ---
Stress Test Report Date: 04/21/2023 Procedure: Pharmacologic stress nuclear imaging study Indications: Preop evaluation Consent: Per the patient Procedure: The patient underwent pharmacologic (Regadenoson 0.4mg ) evaluation with a peak heart rate of 81 beats per minute (51%predicted maximal heart rate) and a peak blood pressure of 168/82 mmHg. The baseline ECG demonstrated sinus rhythm. The peak pharmacologic ECG demonstrated no ischemic changes. There were no cardiac dysrhythmias pretest, during pharmacologic infusion, or recovery. There was no complaint of chest discomfort during pharmacologic infusion or recovery. The patient was injected with 14.0 millicuries of technetium 99m Cardiolite and subsequently rest SPECT Cardiolite nuclear imaging was obtained in the horizontal long, vertical long, and short axis views. The patient underwent pharmacologic (Regadenoson) evaluation. The patient was injected with 45.0 millicuries of technetium 99m Cardiolite and subsequently stress SPECT Cardiolite nuclear imaging was obtained in the horizontal long, vertical long, and short axis views. A gated Cardiolite study at peak stress was obtained. The examination was stopped secondary to completion of protocol. Rest and stress SPECT Cardiolite nuclear imaging status post realignment, normalization, and attenuation correction demonstrate a very small reversible perfusion of the apex. There is end systolic thickening and brightening. The gated Cardiolite study demonstrates myocardial thickening and inward wall motion. The reported LVEF is 58%. Impression: 1. Pharmacologic (Regadenoson) evaluation 2. Peak pharmacologic ECG with no ischemic changes. 3. There were no cardiac dysrhythmias pretest, during pharmacologic infusion, or recovery. 5. Very small reversible perfusion defect of the apex suggestive of very mild ischemia. 6. The gated Cardiolite study reports an LVEF of 58%.
== END | disposition home or self-care (01) ==
LOC: CVS 05:50
PROVIDERS: Referring Provider Internal Medicine Cardiovascular Disease; Visit Provider Internal Medicine Cardiovascular Disease
DX: R94.31 Abnormal electrocardiogram [ECG] [EKG] (principal); I73.9 Peripheral vascular disease, unspecified; I10 Essential (primary) hypertension; I70.90 Unspecified atherosclerosis
CPT/HCPCS: 78452; 93017; 93306; A9500; Q9957; A4216; C8929; J2785

== ENCOUNTER → 2023-05-23 | Outpatient (CLI) | payer OTHER, SELFPAY ==
--- NOTE | 2023-05-23 12:57 | CT_ITS ---
STUDY: CT CHEST WITH CONTRAST REASON FOR EXAM: Male, 62 years old. ABNORMAL TEST limited chest over read ONLY RADIATION DOSAGE (If Supplied By Facility): CTDIvol = ( 34.13 ) mGy, DLP = ( 2560.15 ) mGycm TECHNIQUE: Transaxial imaging was performed following intravenous administration of IV 55mL Isovue-370. Individualized dose optimization techniques were used for this CT. COMPARISON: Comparison is made with prior study dated April 16, 2022. FINDINGS: CHEST Mild degree of dependent bibasilar atelectasis. There is no demonstrated pleural abnormality. There are calcifications of the coronary arteries. There are small lymph nodes within the mediastinum, which are normal in size and morphology most compatible with reactive lymph hyperplasia. Normal hilar regions. Normal unenhanced pulmonary arteries. There is atherosclerotic calcification of the aortic arch. There are degenerative changes of the thoracic spine. Diffuse fatty infiltration of the liver. CT/Limited Chest CT Cardiac Only IMPRESSION: Coronary artery calcification. Electronically Signed: Bhaskar Bernal MD at 13:06 EDT ,
[2023-05-23 13:13] LABS: CREATININE FINGERSTICK < 1.0 mg/dL (0.70-1.30); EGFR FINGERSTICK > 60.0000 mL/min (>60)
[2023-05-23 13:18] VITALS: BP 168/69; PULSE 59; RESP 18; TEMP 36.7; O2SAT 96; BMI 29.4
[2023-05-23 13:31] VITALS: BP 168/69; PULSE 59
[2023-05-23] MEDS: Nitroglycerin SL (ED/IMG/CATH) 0.4 MG TABLET SL (13:31)
[2023-05-23 13:41] VITALS: BP 175/83; PULSE 63; RESP 18; O2SAT 96
== END | disposition home or self-care (01) ==
LOC: CT 12:36
PROVIDERS: PCP Family Medicine; Referring Provider Nurse Practitioner Gerontology; Visit Provider Nurse Practitioner Gerontology
DX: R94.39 Abnormal result of other cardiovascular function study (principal)
CPT/HCPCS: 75574; 76380; Q9967